=== PATIENT | male | born 1950 | race Caucasian/White ===

== ENCOUNTER 2017-10-23 19:52 | Inpatient (IN) | payer MEDICARE, MEDICAID ==
[~2017-10-23] VITALS: Ht 177.8 cm; Wt 88.5 kg
[~2017-10-23 19:52] MED LIST: VITAMIN D400 UNIT PO
[2017-10-23] MEDS ORDERED: VITAMIN D32000 UNI1 PO (20:11)
--- NOTE | 2017-10-24 02:00 | NUR ---
PT ARRIVED TO THE FLOOR VIA STRETCHER. ABLE TO SLIDE HIMSELF TO BED FROM STRETCHER EASILY. DENIES PAIN. DRESSING TO LAP SITES HAVE SEROSANGUINOUS DRAINAGE SHADOWING. DENIES NAUSEA AND IS ASKING FOR "SOMETHING TO EAT." PT EDUCATED ON CURRENT DIET AND EDUCATED ON THE ETIOLOGY OF WHY HE NEEDS TO GO SLOW WITH FOOD AT THIS TIME, PT ACKNOWLEDGED UNDERSTANDING. PT ONLY COMPLAINT AT THIS TIME IS THAT "I FEEL LIKE I HAVE TO PEE, I FEEL LIKE THERE IS ALOT OF PRESSURE IN THERE." BLADDER SCANNED PT, 0MLS SHOWN IN BLADDER. GAVE ICE WATER AND CHICKEN BROTH PER PT REQUEST, PT TOLERATED WELL. ORIENTED TO CALL LIGHT AND ROOM. FAMILY AT BEDSIDE.
--- NOTE | 2017-10-24 02:46 | NUR ---
pt continues to complain of pressure in his bladder, stating "it is very uncomfortable. dc'marquez rios, per ornamental metal erector reporting off to floor rn that it is okay to neo rios for pt comfort.
--- NOTE | 2017-10-24 03:19 | NUR ---
ANTWAN CAIN NOTIFIED RE TEMP.
--- NOTE | 2017-10-24 04:20 | NUR ---
PT LAYING IN BED, AWAKE WHEN ENTERING ROOM. REPORTS "NO PAIN WHEN I AM NOT BREATHING, BUT TO TAKE A BREATH ITS ABOUT A 6/10." GAVE OXYCODONE PO AND TORADOL IV FOR PAIN. NO COMPLAINTS OF NAUSEA. PT REPORTS "IM SO HUNGRY I CANT SLEEP." GAVE BROTH PER REQUEST. MERREM HUNG AND INFUSING WNL. GAVE INCENTIVE SPIROMETER AND GAVE SOME EDUCATION, PT REPORTS HE WILL START USING IT WHEN THE PAIN MEDS "KICK IN." PT NOW WATCHING TV. NO FURTHER NEEDS. CALL LIGHT IN REACH.
--- NOTE | 2017-10-24 05:10 | NUR ---
PT ALERT AND ORIENTED X4, PLEASENT DEMEANOR. FRIENDLY AND TALKATIVE. DENIES NAUSEA, HAS BEEN TOLERATING CLEAR LIQUIDS WELL. IV ANTIBOTICS. RACHID DRAIN, DRAINING SEROSANGUINOUS FLUID. PAIN WELL CONTROLLED WITH PO OXYCODONE AND IV TORADOL. PT USES CALL LIGHT APPROPRIATLY. CONTINUOUS FLUIDS.
--- NOTE | 2017-10-24 06:46 | NUR ---
PT REPORTS PAIN AT A 0/10, STATES "ITS REALLY NOT EVEN THERE AT ALL, IF I STOOD AND MOVED AROUND IT MIGHT HURT A LITTLE." CONTINUES TO DENY NAUSEA. NO FURTHER NEEDS AT THIS TIME.
--- NOTE | 2017-10-24 07:30 | NUR ---
PATIENT RESTING IN BED WITH BY HIS SIDE. PATIENT RATES PAIN 5 OUT OF 10 AND WOULD LIKE A PAIN PILL. RN NOTIFIED. FRESH ICE WATER GIVEN. HANDS AND FACE WASHED. PATIENT WOULD LIKE TO AMBULATE IN HALLWAY WHEN PAIN IS UNDER CONTROL. NO OTHER NEEDS AT THIS TIME. CALL BUTTON IN REACH.
--- NOTE | 2017-10-24 07:35 | NUR ---
REPORT RECEIVED FROM ANTWAN CAIN. PT IS AWAKE SITTING UP IN BED. DENIES PAIN AT THIS TIME. TOLERATING CLEAR LIQUID DIET WELL AND WOULD LIKE TO EAT SOON.
--- NOTE | 2017-10-24 07:52 | HP ---
[facility] [address] [place], [place] [address] Signed ADMISSION DATE: 10/23/2017 REASON FOR ADMISSION: Probable cecal perforation related to polypectomy and colonoscopy today. HISTORY OF PRESENT ILLNESS: This 67-year-old white man was undergoing screening colonoscopy by me earlier in the day. He was noted to have a sessile polyp of the cecum. The lesion was excised with hot snare polypectomy technique after mucosal lift using Endomark tattoo dye. Postoperatively, he was doing well, passing flatus without problems and went home. At home, he was noted to have some chills and abdominal pain which was worsening. He called me at home and since pain was not improving, I directed him to the emergency room. Coordination with Dr. Oquendo was undertaken where he was then given a CT scan as well as lab studies. The lab studies showed that his white count was over 20,000 (20.7), hematocrit of 49.4, and platelets of 257,000. Chem profile showed potassium of 3.3, which was otherwise normal. His lactic acid was 2.5. Urinalysis was normal. The CT scan showed free intraperitoneal air in a considerable amount. It is likely he suffered perforation related to the polypectomy. He is admitted for further evaluation and care to undergo operation without delay. REVIEW OF SYSTEMS: He denies any shortness of breath or chest pain. He does not feel like he can take a good deep breath due to discomfort, however. He has had no vomiting. His says that he has had some blood per rectum. PHYSICAL EXAMINATION: GENERAL: Pleasant white man, who does not look systemically toxic at this time, though he is uncomfortable. HEENT: Mucous membranes are slightly dry. Trachea is midline. CHEST: Clear. HEART: Regular without murmur. ABDOMEN: Not particularly distended. Palpation gently shows no focal mass or tenderness actually. EXTREMITIES: Show no clubbing, cyanosis, or edema. LABORATORY DATA: Lab studies were as previously described. CT scan is reviewed in detail, which shows free intraperitoneal most dominantly on the coronal section. Examination of the coronal Electronically Signed By: COLLETTE VILLAR MD 10/24/17 0752 PATIENT NAME: BRIANNA AGUERO HISTORY AND PHYSICAL DATE OF : 52 PHYSICIAN: COLLETTE VILLAR MD REPORT #: [id number] REPORT IS CONFIDENTIAL AND NOT TO BE RELEASED WITHOUT AUTHORIZATION [facility] [address] [place] [id number] Signed view shows scattered intraperitoneal air as well as some mesenteric air on the right side. ASSESSMENT: Most likely he has perforation of the polypectomy site, which has been well marked with Endomark tattoo dye and is on the cecum. I have proposed a laparoscopic evaluation and probable control of the perforation with a stapling device or other similar approach. If this is not successful, a limited laparotomy incision will be employed. It is most likely that perforation is located where the operative intervention was, so it is possible there could be some other area of problem. The risks of bleeding, infection, need for open procedure, and other unforeseen complications were reviewed with the patient and his . They understand and wished to proceed. In the meantime, fluid resuscitation, IV antibiotics, and so forth will be administered. Collette Villar MD JM/MODL /[id number] cc: Gareth Hodgson MD Electronically Signed By: COLLETTE VILLAR MD 10/24/17 0752 PATIENT NAME: BRIANNA AGUERO HISTORY AND PHYSICAL DATE OF : 52 PHYSICIAN: COLLETTE VILLAR MD REPORT #: [id number] REPORT IS CONFIDENTIAL AND NOT TO BE RELEASED WITHOUT AUTHORIZATION
--- NOTE | 2017-10-24 08:16 | NUR ---
MED REC COMPLETE
--- NOTE | 2017-10-24 08:36 | NUR ---
ADMINISTERED MORNING MEDS AND PRN PAIN MEDS. RATES PAIN 5/10. IN ROOM. HAS CRACKLES IN BASES. ADVISED TO USE IS AND DEEP BREATHE AND COUGH.
--- NOTE | 2017-10-24 08:50 | NUR ---
PATIENT UP AMBULATING IN HALLWAY. LINENS CHANGED. ORAL CARE SET UP IN BATH ROOM FOR USE. GOWN CHANGED.
--- NOTE | 2017-10-24 10:11 | NUR ---
PATIENT SITTING UP IN BED DRINKING BROTH. FRESH ICE WATER GIVEN. CALL BUTTON IN REACH. NO OTHER NEEDS AT THIS TIME.
--- NOTE | 2017-10-24 10:30 | NUR ---
PT SITTING UP IN BED EATING CRACKERS. DENIES NEEDS AT THIS TIME.
--- NOTE | 2017-10-24 10:58 | NUR ---
PT UP WALKING IN HALLS AGAIN. HAS HAD CRACKERS AND SOME PUDDING A SNACK. TOLERATING WELL. STATES HIS PAIN IS WELL CONTROLLED.
--- NOTE | 2017-10-24 12:44 | NUR ---
PATIENT RESTING IN BED. FRESH ICE WATER GIVEN. PATIENT STATES THAT HE JUST RECIEVED PAIN MEDICATION. NO OTHER NEEDS AT THIS TIME. IN ROOM. CALL BUTTON IN REACH.
--- NOTE | 2017-10-24 13:37 | NUR ---
PATIENT RESTING IN BED WATCHING TV WITH . CALL BUTTON IN REACH. CLEAN GOWN GIVEN. BP REPORTED TO RN. NO OTHER NEEDS AT THIS TIME.
--- NOTE | 2017-10-24 13:49 | NUR ---
VISITED WITH PT HE WAS UP AND WALKING IN HALWAY. HE SAID HE WAS FEELING MAYBE A LITTLE BETTER, BUT STILL NOT SURE WHAT IS WRONG. ALERT AND ORIENTED AND VERY PLEASANT. EXTENDED A BLESSING, WILL FOLLOW NEEDED
--- NOTE | 2017-10-24 14:19 | NUR ---
LEFT MESS ON DR VILLAR PHONE ASKING HIM TO CALL WHEN CONVIENT PT WAS WONDERING IF HE COULD BE DISCHARGED. WILL UPDATE PT WHEN HE CALLS BACK.
--- NOTE | 2017-10-24 14:40 | NUR ---
PT IS SITTING UP IN BED WATCHING TV WITH AT BEDSIDE. DENIES ANY PAIN OR NAUSEA. CALL LIGHT IN REACH.
--- NOTE | 2017-10-24 15:30 | NUR ---
PATIENT'S IS BACK AND SITTING WITH PATIENT AT BEDSIDE. PATIENT IS AWAKE AND CALM FOR NOW. PATIENT SIPPING ON SOME CLEAR LIQUIDS/LEMON [place] OSDA POP WITH ICE. JUST DUMPED ANOTHER 450MLS OF URINE FOR PATIENTS MOCK.
--- NOTE | 2017-10-24 16:18 | NUR ---
Student nurse reports that patient is resting in bed and wants to go home. no other needs.
--- NOTE | 2017-10-24 17:24 | NUR ---
TALKED TO DR VILLAR REGARDING POSSIBLE DISCHARGE. BP HAS BEEN A SMIDGE LOW TODAY SO DECIDED TO STAY FOR THE NIGHT AND PROBABLY GO IN THE MORNING. TOLD PT AND HE AND HIS WERE OK WITH IT. WASHED PT'S HAIR WITH SHOWER CAP AND GAVE HIM BED BATH WIPES HE CANT SHOWER YET. PT APPRECIATIVE.
--- NOTE | 2017-10-24 17:47 | NUR ---
PLAN TO DC TO HOME TOMORROW. PT IS SBA. WAS UP WALKING INDEPENDENTLY IN HALLWAY TODAY. NEEDS REMINDERS TO CALL AND GET UNHOOKED BEFORE GETTING UP. MINIMAL DRAINAGE FROM LAP SITES. REINFORCED 2 SITES WITH GAUZE. PAIN HAS BEEN WELL CONTROLLED. TOLERATING REGULAR DIET WELL.
--- NOTE | 2017-10-24 17:55 | NUR ---
PATIENT SITTING UP IN BED, IN ROOM. VITALS DONE. FRESH ICE WATER GIVEN, CALL LIGHT IN ROOM. NO OTHER NEEDS AT THIS TIME.
[2017-10-24] MEDS ORDERED: METRONIDAZOLE250 MG PO (19:16)
[2017-10-24] MEDS ORDERED: CIPROFLOXACIN500 MG PO (19:16)
[2017-10-24] MEDS ORDERED: TYLENOL325 MG PO (19:17)
[2017-10-24] MEDS ORDERED: OXYCODON-ACETA1 EAC2 PO (19:17)
[2017-10-24] MEDS ORDERED: MOTRIN IB200 MG PO (19:17)
--- NOTE | 2017-10-24 21:05 | NUR ---
PT SITTING UP IN BED WATCHING TV. ALERT AND ORIENTED X4, PLEASENT DEMEANOR, VERY TALKATIVE. RATES PAIN AT 2/10, STATING "NOT BAD RIGHT NOW." GAVE PERCOCET FOR PAIN. REPORTS FLATUS. IV INFUSING WNL. GAVE FRESH ICE WATER. NO FURTHER NEEDS.
--- NOTE | 2017-10-24 21:15 | NUR ---
PT UP AMBULATING IN THE HALLS, TOLERATING VERY WELL. STEADY ON FEET.
--- NOTE | 2017-10-24 22:31 | EKG ---
[facility] [address] [facility] [place] [address] Signed Normal sinus rhythm Possible Left atrial enlargement Borderline ECG No previous ECGs available Confirmed by FRANC PHELPS MD ([id number]) on 10/24/2017 10:31:34 PM Electronically Signed By: FRANC PHELPS MD 10/24/172230 PATIENT NAME: BRIANNA AGUERO Electrocardiogram DATE OF : 52 PHYSICIAN: FRANC PHELPS MD REPORT #: [id number] REPORT IS CONFIDENTIAL AND NOT TO BE RELEASED WITHOUT AUTHORIZATION
--- NOTE | 2017-10-24 23:24 | NUR ---
PT APPEARS TO BE SLEEPING. RR WNL AND UNLABORED. LIGHTS AND TV OFF IN ROOM.
--- NOTE | 2017-10-25 01:46 | NUR ---
PT APPEARS TO BE SLEEPING. RR WNL AND UNLABORED. LIGHTS AND TV OFF IN ROOM.
--- NOTE | 2017-10-25 05:10 | NUR ---
PT HAD UNEVENTFUL NIGHT. SLEPT MAJORITY OF SHIFT. PAIN WELL CONTROLLED. RACHID DRAINING MINIMAL AMOUNTS OF SEROSANGUENOUS DRAINAGE. PASSING FLATUS. NO NAUSEA. ALERT AND ORIENTED X4. PLEASENT DEMEANOR. AMBULATED IN THE HALLS LAST NIGHT, TOLERATED WELL.
--- NOTE | 2017-10-25 07:15 | NUR ---
REPORT RECEIVED FROM ANTWAN CAIN. PT UP WALKING IN HALLS AND SITTING IN CHAIR. INDEPENDENT IN ROOM. SL. UO PICKED UP THROUGHOUT NIGHT. WOULD LIKE A PAIN PILL WITH BREAKFAST.
--- NOTE | 2017-10-25 08:00 | NUR ---
PATIENT SITTING UP IN CHAIR, IN ROOM. SET UP FOR BREAKFAST. ROOM TIDIED. CALL LIGHT IN REACH.
--- NOTE | 2017-10-25 08:02 | NUR ---
ADMINISTERED PAIN MEDICATION WITH MORNING MEDS. PT AND SITTING UP WAITING FOR BREAKFAST. STATES HE IS FEELING WELL AND READY TO GO HOME TODAY. RACHID HAD 40 SOMETHING OUT THROUGH NIGHT.
--- NOTE | 2017-10-25 09:45 | NUR ---
PT SITTING UP IN CHAIR WATCHING TV WITH . PT EAGER TO GO HOME.
--- NOTE | 2017-10-25 10:02 | NUR ---
CHANGED PT DRESSING ON RACHID DRAIN SITE AND CHECKED TO MAKE SURE HE KNOWS HOW TO DRAIN AND DRESS SITE.
--- NOTE | 2017-10-25 10:29 | NUR ---
PT EDUCATION GIVEN, WENT OVER DRAIN AND INCISION CARE WITH PT AND . BOTH VERBALIZED UNDERSTANDING. PT GIVEN PRESCRIPTIONS AND EDUCATION REGARDING TYLENOL AND PERCO. PHARM IN TO EDUCATE ALSO. IV REMOVED WITH RN STUDENT AND INSTRUCTOR KRISTAN. VS STABLE. PT DRESSED AND BELONGINGS SENT HOME WITH THEM.
--- NOTE | 2017-10-25 11:12 | NUR ---
Discharge medication counseling by pharmacist. Patient discharged with 2 antibiotics, metronidazole 250mg PO TID and ciprofloxacin 500mg PO BID. Patient informed of potential side effects, including avoidance of alcohol while taking metronidazole
--- NOTE | 2017-11-09 14:11 | DS ---
[facility] [address] [place], [place] [address] Signed ADMISSION DATE: 10/23/2017 DISCHARGE DATE: 10/25/2017 REASON FOR ADMISSION: This 67-year-old white man underwent screening colonoscopy in the morning of October 23, 2017. He was noted to have a sessile polyp of the cecum for which a mucosal lift technique snare polypectomy was performed. A mucosal lift was using Endomark tattoo dye. The remaining colon was normal. Later in the evening, I was called at home by his , noting the patient was having abdominal pain as well as chills. He was directed to the emergency room in coordination with Dr. Oquendo, allowed for CT scan to be obtained as well as lab studies showing a white count of 20.7. A CT scan showing considerable amount of free air and some air in the region of the cecum. He is clinically diagnosed as having suffered a perforation of the cecum related to polypectomy. He is admitted for further evaluation and care. PERTINENT PHYSICAL EXAMINATION: GENERAL: Showed a pleasant white man, who did not look systemically toxic. CHEST: Clear. HEART: Regular. ABDOMEN: Only mildly distended and surprisingly not particularly tender. EXTREMITIES: Showed no clubbing, cyanosis, or edema. HOSPITAL COURSE: He was fluid-resuscitated, given broad-spectrum antibiotic meropenem and taken to operation. Operation consisted of laparoscopy showing a small amount of slightly foamy fluid in the right pericolic gutter. No gross evidence of fecal contamination and the Endomark tattoo dye site of the cecum in the anteromedial aspect. There was no sign of large hole in the area, though this undoubtedly was a source of his perforation likely a microperforation. The problem was managed by a laparoscopic wedge resection of that portion of the cecum with laparoscopic oversewing of the staple line with interrupted silk sutures. Lavage was undertaken and placement of a drain undertaken as well. The operation concluded approximately 2 in the morning. By later that morning, he was feeling well and able to tolerate liquid and subsequently a solid diet without problem. Although he wanted to be discharged home right away. I did keep him for further observation as he was mildly hypotensive with systolic pressure of 95. He was transitioned from broad-spectrum IV antibiotics to oral antibiotics Cipro and Flagyl. The drain was placed showed no evidence of purulent discharge, only serosanguineous fluid. Electronically Signed By: COLLETTE VILLAR MD 11/09/17 1411 PATIENT NAME: BRIANNA AGUERO DISCHARGE SUMMARY DATE OF : 52 REPORT #: [id number] PHYSICIAN: COLLETTE VILLAR MD PCP: FAUSTINO HODGSON MD REPORT IS CONFIDENTIAL AND NOT TO BE RELEASED WITHOUT AUTHORIZATION [facility] [address] [place], [place] [address] Signed By time of discharge, he is ambulating well, tolerating a regular diet, has essentially no pain. The drain shows serosanguineous fluid only. It is my intention that he have several days more of p.o. antibiotics to maintain a regular diet and to return to see me in approximately a week for drain removal. If there are problems in the meantime, he will certainly let me know. DISCHARGE DIAGNOSES: 1. Microperforation of cecum related to polypectomy with mucosal lift technique and Endomark tattoo dye application, October 23, 2017. 2. Laparoscopic remedy of problem to include a wedge resection of portion of cecum and polypectomy site, oversewing of site with silk suture and placement of drain and peritoneal lavage. DISCHARGE MEDICATIONS: Include: 1. Percocet 7.5/325, one to two p.o. q.4 hours p.r.n. pain, #10. 2. Flagyl 250 mg p.o. t.i.d. #15. 3. Cipro 500 mg p.o. b.i.d. #10. 4. Tylenol 650 mg p.o. q.4 hours as needed for pain. 5. Motrin 200 mg tablets, 3 tablets p.o. q.6 hours as needed for pain. 6. He will continue with his vitamin D3 tablet 2000 units daily. MD KATE Littlejohn/CATRACHITOL /[id number] cc: Faustino Hodgson MD Copies: FAUSTINO HODGSON MD ~ Electronically Signed By: COLLETTE VILLAR MD 11/09/17 1411 PATIENT NAME: BRIANNA AGUERO DISCHARGE SUMMARY DATE OF : 52 REPORT #: [id number] PHYSICIAN: COLLETTE VILLAR MD PCP: FAUSTINO HODGSON MD REPORT IS CONFIDENTIAL AND NOT TO BE RELEASED WITHOUT AUTHORIZATION
--- NOTE | 2017-11-09 14:11 | OR ---
[facility] [address] [place], [place] [address] Signed DATE OF OPERATION: 10/24/2017 SURGEON: Collette Villar MD PREOPERATIVE DIAGNOSES: 1. Free intraperitoneal air. 2. Status post cecal polypectomy with mucosal lift technique today. POSTOPERATIVE DIAGNOSIS: Probable microperforation at cecum. PROCEDURES: 1. Laparoscopy with laparoscopic wedge excision of polypectomy site (Endo-MALOU technique). 2. Over-sewing of Endo Alexander staple line. 3. Placement of drain and peritoneal lavage. ANESTHESIA: General endotracheal, Alexander Sohan, PRINTING ROLLER POLISHER and local 20 mL of 0.25% Marcaine without epinephrine. INDICATION: This is a 67-year-old white man underwent screening colonoscopy today. He prep at the time of colonoscopy was quite good. He was noted to have a somewhat sessile polyp of the cecum. This lesion was about 1-1/2 cm in size. Using mucosal lift technique with Endo Alexander tattoo, a snare polypectomy was accomplished without apparent problem. The remaining colon was normal. The patient has felt well until late in the afternoon where he began having abdominal pain and not feeling well. He called me at home and I recommended he come to the emergency room and coordinate with Dr. Oquendo, emergency room physician for him to undergo CBC, Chem profile, and CT scan of the abdomen. His white count was noted to be greater than 20,[address] scan shows free intraperitoneal air consistent with perforated colon. I have recommended he undergo a laparoscopy with probable laparoscopic repair of the perforation, which almost certainly would be at the site of the polypectomy. He and his understand the possible need for open procedure and other indicated procedures depending on clinical findings. The risks of bleeding, infection, failure of diagnosis, misdiagnosis, need for additional treatment, so forth were all reviewed and well understood. Electronically Signed By: COLLETTE VILLAR MD 11/09/17 1411 PATIENT NAME: BRIANNA AGUERO OPERATIVE REPORT DATE OF : 52 REPORT #: [id number] PHYSICIAN: COLLETTE VILLAR MD PCP: FAUSTINO RICO MD REPORT IS CONFIDENTIAL AND NOT TO BE RELEASED WITHOUT AUTHORIZATION [facility] [address] [place], [place] [address] Signed FINDINGS: Within the abdomen, there was definitely free air. There was no sign of gross fecal spillage. There was some foamy fluid in the right pericolic gutter and air within the fatty tissue in relation to the cecum. The Endo Alexander tattoo dye was quite obvious. Exposure of the polypectomy site did not show a large hole in the colon by any means, but did show thinning out and probable microperforation as an underlying problem. It was relatively close, but not contiguous with the ileum. The appendix itself was normal. The site was excised by wedge technique with Endo MALOU stapling device and the staple line oversewn laparoscopically with interrupted silk sutures. A drain was placed and peritoneal lavage undertaken as well. Other findings showed no evidence of terminal ileitis. The liver was normal as was the gallbladder. The appendix was normal and left in situ. DESCRIPTION OF PROCEDURE: The patient was brought to the operating room, given a general endotracheal anesthetic. Antibiotic meropenem was concurrently running. Preoperative Pepcid was given and sequential compression device stockings used. A Espinosa catheter was placed. The abdomen was clipped and prepared with chlorhexidine solution and draped sterilely. An infraumbilical incision was made and using an open Ladarius cannula technique, the abdomen was entered. Egress of free paired peritoneal air was noted. It was not foul smelling particularly. Pneumoperitoneum was achieved to a level of 14 mmHg of carbon dioxide gas. Intraabdominal inspection showed a foamy thin fluid along the right pericolic gutter and some crepitant soft tissue in the region of the cecum. Deep marking related to Endo Alexander tattoo dye was noted as well. There was no sign of fecal material within the abdominal cavity nor much of fluid really. An epigastric 12 mm port was placed and 2-hand examination undertaken identified the terminal ileum in the antimesenteric fat pad of Treves. The cecum was then identified more fully and elevated. It was found to be slight bubbling in the mesentery in relation to the colon. A 5 mm right lower quadrant port was placed allowing for 2-hand manipulation with a camera at the epigastric site. With various manipulations, the ileum and its relationship to the previous polypectomy site could be well identified. The appendix appeared normal. The perforation appeared to be likely at the anteromedial aspect. Some fatty tissue near the area of the presumed perforation was dissected free and excised exposing well the serosa of the cecum itself. There is no gross rent in the colon, only likely a micro perforation and photographs were taken. An additional 5 mm port was placed and the cecum elevated a bit and using an Endo MALOU stapling device with a vascular load, the segment of dyed cecal wall was elevated and transected. The small amount of cecum was placed in an endobag and extracted and examined on the back table. I could not find upon opening it any particular though that did appear to be polyp remnant, which is somewhat surprising. Electronically Signed By: COLLETTE VILLAR MD 11/09/17 7442 PATIENT NAME: BRIANNA AGUERO OPERATIVE REPORT DATE OF : 52 REPORT #: [id number] PHYSICIAN: COLLETTE VILLAR MD PCP: FAUSTINO RICO MD REPORT IS CONFIDENTIAL AND NOT TO BE RELEASED WITHOUT AUTHORIZATION [facility] [address] [place], [place] [address] Signed Irrigation was undertaken at the staple line. There was no sign of leakage or other problem. Given the findings and uncertainty as to the remaining vascularity of the cecum following the thermal effect of the polypectomy, laparoscopic closure of the staple line was undertaken with interrupted 2-0 silk suture. Meticulous care was taken to close this well and regional fatty tissue was reapproximated as well. the right lower quadrant trocar site, a 7 mm flat Jesus drain was placed in the region as well. Irrigation was undertaken fully throughout the abdomen and irrigation fluid suctioned free. The trocars were removed under direct visualization showing no sign of bleeding. The infraumbilical and epigastric trocar sites were secured with interrupted 2-0 Vicryl. Skin was closed with interrupted 3-0 Vicryl. Steri-Strips were applied. The patient was ultimately extubated and transferred to recovery in good condition having suffered no complication. Sponge, needle, and instrument counts were reported as correct x3. MD KATE Littlejohn/CORA /[id number] cc: MD Krishan Ma MD Electronically Signed By: COLLETTE VILLAR MD 11/09/17 1411 PATIENT NAME: BRIANNA AGUERO OPERATIVE REPORT DATE OF : 52 REPORT #: [id number] PHYSICIAN: COLLETTE VILLAR MD PCP: FAUSTINO RICO MD REPORT IS CONFIDENTIAL AND NOT TO BE RELEASED WITHOUT AUTHORIZATION
== END 2017-10-25 10:35 | disposition home or self-care (01) | DRG 909 ==
LOC: ED 19:52 → MS 22:28
PROVIDERS: ADMIT Surgery
PROC: 3E1M38Z Irrigation of Peritoneal Cavity using Irrigating Substance, Percutaneous Approach (ICD-10-PCS; principal; 2017-10-24)
PROC: 0DBH4ZZ Excision of Cecum, Percutaneous Endoscopic Approach (ICD-10-PCS; principal; 2017-10-24)
DX: K91.71 Accidental puncture and laceration of a digestive system organ or structure during a digestive system procedure (principal); Y84.8 Other medical procedures as the cause of abnormal reaction of the patient, or of later complication, without mention of misadventure at the time of the procedure; Z86.010 Personal history of colon polyps
CPT/HCPCS: 00840; 36415; 74177; 80053; 81001; 82247; 82465; 83605; 83615; 83690; 84100; 84478; 84550; 85025; 87040; 88305; 93005; 93010; 94760; 99153; G0500; J0131; J1644; J1885; J2185; J2250; J2370; J2405; J2704; J2765; J3010; J7030; J7120; Q9967

== ENCOUNTER 2018-03-06 20:20 | Emergency (ER) | payer MEDICARE, MEDICAID ==
[~2018-03-06] VITALS: Ht 177.8 cm; Wt 88.5 kg
[~2018-03-06 20:20] MED LIST changes: +CIPROFLOXACIN500 MG PO; +METRONIDAZOLE250 MG PO; +MOTRIN IB200 MG PO; +OXYCODON-ACETA1 EAC2 PO; +TYLENOL325 MG PO; +VITAMIN D32000 UNI1 PO
== END 2018-03-06 22:07 | disposition home or self-care (01) ==
LOC: ED 20:20
PROC: 0HQ1XZZ Repair Face Skin, External Approach (ICD-10-PCS; principal; 2018-03-06)
DX: S01.21XA Laceration without foreign body of nose, initial encounter (principal); W55.12XA Struck by horse, initial encounter
CPT/HCPCS: 12013; 90471; 90715; 99283

== ENCOUNTER 2021-05-31 20:13 | Inpatient (IN) | payer MEDICARE, MEDICAID ==
[~2021-05-31] VITALS: Ht 177.8 cm; Wt 87.7 kg
--- NOTE | 2021-05-31 23:45 | NUR ---
2310 pt ARRIVED TO FLOOR ON BiPAP. ABLE TO MOVE SELF FROM STRETCHER TO BED. ALERT AND ORIENTED, DID REPORTED FEELING "FUZZY" ANSWERED ALL QUESTIONS APPROPRIATELY. DAUGHTER AMOS ARRIVED WITH pt. DISCUSSED PLAN OF CARE. WHEN ASKED ABOUT INTUBATION pt RESPONDED THAT HE DID WANT TO BE INTUBATED, DAUGHTER LATER STATED THE FAMILY HAS DECIDED THEY DID NOT WANT INTUBATION. DISCUSSED PRONING. pt ABLE TO ROLL TO LEFT SIDE. O2 SAT RESPONDED WITH INCREASE TO HIGH 90'S. ASSESSMENT DONE. LUNGS CLEAR. RESPIRATIONS TACHY. pt REPORTED A RASH TO CHEST AND ARMS, DOTS OF RED NOTED. pt STATED THIS STARTED WHEN HE FELL ILL. NO OTHER SKIN BREAKDOWN NOTED. IVS PATENT, LABS DRAWN. IVF INFUSING PER ORDERS. MEDICATION GIVEN (SEE MAR). pt ARRIVED ON BiPAP SETTINGS OF 20/8 Fi02 OF 80%. TITRATED TO 16/8 FiO2 OF 80%. SATS APPROPRIATE. DAUGHTER REMAINS AT BEDSIDE. CALL LIGHT WITHIN REACH.
--- NOTE | 2021-06-01 00:28 | NUR ---
HAD A DISCUSSION WITH DAUGHTER AMOS AND pt. AT THIS TIME THE FAMILY AND PATIENT WOULD LIKE TO REFUSE THE REMDESIVER TREATMENT AND DECADRON. THEY UNDERSTAND THAT HE HAS ALREADY HAD ONE DOSE OF THE DECADRON. DAUGHTER REMAINS IN THE ROOM WITH PERMISSION FROM [employer] FIRMWARE DEVELOPER. CALL LIGHT WITHIN REACH.
--- NOTE | 2021-06-01 02:24 | NUR ---
CALL LIGHT ON. pt REQUESTED TO GET UP AND VOID. ASSISTED TO SIDE OF BED pt UNABLE TO START STREAM. REQUESTED TO TRY AGAIN LATER. MOVED pt FROM BiPAP TO NON REBREATHER AT 15L ABLE TO SUSTAIN ABOVE 90% FOR 2 MINUTES BEFORE DIPPING BELOW 90%. pt PLACED BACK ON BiPAP SETTINGS 17/04 Fi02 OF 80%. pt RESTING IN BED ON LEFT SIDE. DAUGHTER AT BEDSIDE. CALL LIGHT WITHIN REACH.
--- NOTE | 2021-06-01 04:50 | NUR ---
IVF INFUSION COMPLETED. SL. LABS DRAWN. pt REPORTED VOIDING. DAUGHTER NOTED THAT HIS SAT WENT UP TO 100% WHEN HE WAS STANDING. pt STATES HE FEELS BETTER. ASSESSMENT DONE. CRACKLES NOTED IN BASES. NO OTHER CHANGES. URINE IS VERY CONCENTRATED. BiPAP TITRATED FROM 16/8 FiO2 OF 80% TO 14/8 FiO2 OF 60% O2 SAT 95 OR GREATER. RESPIRATION RATE MID 20S. HR 70'S. pt ABLE TO TAKE BiPAP OFF AND ON WHEN NEEDED. PROVIDED APPLE JUICE. DAUGHTER REMAINS AT BEDSIDE. CALL LIGHT WITHIN REACH.
--- NOTE | 2021-06-01 04:51 | NUR ---
IVF INFUSION COMPLETED. SL. LABS DRAWN. pt REPORTED VOIDING. DAUGHTER NOTED THAT HIS SAT WENT UP TO 100% WHEN HE WAS STANDING. pt STATES HE FEELS BETTER. ASSESSMENT DONE. CRACKLES NOTED IN BASES. NO OTHER CHANGES. URINE IS VERY CONCENTRATED. BiPAP TITRATED FROM 14/8 FiO2 OF 80% TO 12/8 FiO2 OF 60% O2 SAT 95 OR GREATER. RESPIRATION RATE MID 20S. HR 70'S. pt ABLE TO TAKE BiPAP OFF AND ON WHEN NEEDED. PROVIDED APPLE JUICE. DAUGHTER REMAINS AT BEDSIDE. CALL LIGHT WITHIN REACH.
--- NOTE | 2021-06-01 05:18 | NUR ---
SATURATIONS CONTINUE TO RANGE IN THE LOW TO MID 90'S. CHANGED MODE FROM BiPAP TO CPAP 12, Fi02 OF 65%. NO REQUESTS AT THIS TIME. CALL LIGHT WITHIN REACH.
--- NOTE | 2021-06-01 06:42 | NUR ---
pt URINATED, CONCENTRATED URINE. REPLACED ELECTRODES. DENIES SOB, REPORTS THE CPAP IS COMFORTABLE. DAUGHTER AT BEDSIDE. CALL LIGHT WITHIN REACH.
--- NOTE | 2021-06-01 07:49 | NUR ---
WOB OK BOZENA CPAP WELL PROTECTING OWN AIRWAY AT THIS TIME. FIO2 DECREASED FROM 60% TO 50% BOZENA WELL. PT REFUSING HEAT AND HUMIDITY AT THIS TIME.
--- NOTE | 2021-06-01 08:33 | NUR ---
PATIENT AWAKE IN BED, VITALS CHARTED. ICE WATER PROVIDED AND BREAKFAST ORDERED. RN CARLOS A IN ROOM NOW. CALL LIGHT IN REACH
--- NOTE | 2021-06-01 08:45 | NUR ---
PATIENT ASSESSMENT COMPLETE. MEDICATIONS GIVEN ORDERED. PATIENT IS ON CPAP 50% FIO2. PATIENT LUNG SOUNDS ARE CLEAR IN THE UPPER LOBES AND HAS FINE CRACKLES IN THE LOWER LOBES. OXYGEN SATURATION IS MAINTAIN FROM 90-94%. DENIES FEELING SHORT OF BREATH. BREATHING IS EQUAL AND UNLABORED. HEART RATE IS 72 BPM ON SINUS RHYTHM. URINE OUTPUT IS YELLOW AND CLEAR. NO BM THIS MORNING. PATIENT UPDATED ON PLAN OF CARE. CALL LIGHT WIHTIN REACH NO FUTHER NEEDS.
--- NOTE | 2021-06-01 09:45 | NUR ---
PATIENT UP IN BED FOR BREAKFAST. CPAP SWITCHED WITH 15 LITERS OF HIGH FLOW OXYGEN. PATIENT OXYGEN SATURATIONS DECREASED FROM 85%-90%. CPAP WAS PUT BACK ON. PATIENT CPAP IS SET AT 60% FI02 AND 12 PRESSURE. OXYGEN SATURATION UP TO 95%. PATIENT DENIES FEELING SHORT OF BREATH. RR IS 23. HEART RATE IS 70 BPM. DAUGHTER PRESENT AT BEDSIDE. PATIENT UPDATED ON PLAN OF CARE. CALL LIGHT WITHIN REACH NO FUTHER NEEDS.
--- NOTE | 2021-06-01 12:20 | NUR ---
PATIENT ASSESSMENT COMPLETE. LR RUNNING AT 100 MLS/HR. PATIENT UP IN HIGH FOWLERS FOR LUNCH. PATIENT ON VAPOTHERM 40 LPM AND 100 FIO2. OXYGEN SATURATION WAS 88%-95%. BREATHING UNLABORED AND EQUAL. RR IS 25. HEART RATE IS 83 BPM. SINUS RHYTHM. URINE OUT IS CLEAR AND YELLOW. NO BM TODAY. PATIENT PLACED ON CPAP PRESSURE 12 AND 60 FIO2. PATIENT UPDATED ON PLAN OF CARE. CALL LIGHT WITHIN REACH NO FUTHER NEEDS.
--- NOTE | 2021-06-01 17:31 | NUR ---
PATIENT ASSESSMENT COMPLETE. PATIENT IS EATING DINNER. VAPOTHERM ON AT 40 LPM AND 100% FI02. OXYGEN SATURATION IS 90%. LUNG SOUNDS ARE CLEAR IN THE UPPER LOBES AND HAS FINE CRACKLES IN THE LOWER LOBES. UNLABORED AND EQUAL BREATHING DENIES FEELING SHORT OF BREATH. RR IS 21. HEART RATE IS 70 BPM. PATIENT IS IN SINUS RHYTHM. URINE IS YELLOW AND CLEAR. NO BM TODAY. PATIENT UPDATED ON PLAN OF CARE. CALL LIGHT WITHIN REACH NO FUTHER NEEDS.
--- NOTE | 2021-06-01 18:37 | NUR ---
MED REC COMPLETED
--- NOTE | 2021-06-01 19:30 | NUR ---
RECEIVED REPORT FROM ANTWAN STRAUSS. pt RESTING IN BED ON CPAP. DAUGHTER MASOUD AND GRANDJOAQUIN AT BEDSIDE. NO REQUESTS AT THIS TIME. CALL LIGHT WITHIN REACH.
--- NOTE | 2021-06-01 20:30 | NUR ---
IN TO DO ASSESSMENT. DISCUSSED MEDICATIONS WITH pt AND FAMILY IN DEPTH. REFUSED REMDESIVIR. LR INFUSING PER ORDERS. ASSESSMENT DONE. LUNGS CLEAR IN THE UPPERS, CRACKLES IN THE LOWERS. PROVIDED WATER. pt ABLE TO REMOVE CPAP MASK NEED FOR WATER. CALL LIGHT WITHIN REACH.
--- NOTE | 2021-06-01 21:23 | NUR ---
HUNG A NEW BAG OF IV FLUID. NO REQUESTS AT THIS TIME. pt RESTING ON LEFT SIDE. CPAP IN PLACE SATS MID 90'S. CALL LIGHT WITHIN REACH.
--- NOTE | 2021-06-01 22:30 | NUR ---
CALL LIGHT ON. PROVIDED URINAL. NO FURTHER REQUESTS AT THIS TIME.
--- NOTE | 2021-06-02 | NUR ---
CALL LIGHT ON. pt REQUESTED PRN COUGH MEDICATION. PROVIDED. ASSESSMENT DONE. NO CHANGES. DAUGHTER AMOS AT BEDSIDE. DISCUSSED PLAN OF CARE. CALL LIGHT WITHIN REACH. pt RESTING ON RIGHT SIDE WITH CPAP IN PLACE.
--- NOTE | 2021-06-02 05:02 | NUR ---
NOTED A DROP IN O2 SAT. IN TO ASSESS. pt UP TO VOID, BSC SBA. ABLE TO GET BACK TO BED BY SELF. ASSESSMENT DONE. NO CHANGES NOTED. pt PLACED ON VAPOTHERM 30L 100% TO DO AM CARES. ABLE TO MAINTAIN SATS MID 80'S WITH ACTIVITY. BACK ON CPAP. NO FURTHER REQUESTS AT THIS TIME. CALL LIGHT WITHIN REACH.
--- NOTE | 2021-06-02 06:28 | EKG ---
[facility] [address] [place], [place] [address] Signed Normal sinus rhythm Normal ECG When compared with ECG of 23-OCT-2017 20:30, No significant change was found Confirmed by JAY RAMIREZ MD ([id number]) on 06/02/2021 6:28:31 AM Electronically Signed By: JAY RAMIREZ MD 06/02/21 0628 PATIENT NAME: BRIANNA AGUERO Electrocardiogram DATE OF : 52 PHYSICIAN: JAY RAMIREZ MD REPORT #: [id number] REPORT IS CONFIDENTIAL AND NOT TO BE RELEASED WITHOUT AUTHORIZATION
--- NOTE | 2021-06-02 07:36 | NUR ---
REPORT RECEIVED FROM NIGHTSHIFT RN, WILL CONTINUE PLAN OF CARE.
--- NOTE | 2021-06-02 08:10 | NUR ---
PATIENT AWAKE IN BED, DAUGHTER IN ROOM. FRESH ICE WATER AND BREAKFAST PROVIDED. BEDBATH SUPPLIES IN ROOM FOR LATER. CALL LIGHT AND PERSONAL ITEM CLOSE BY. PATIENTS DAUGHTERS WILL BE SWITCHING OUT WITHIN THE HOUR.
--- NOTE | 2021-06-02 09:26 | NUR ---
THIS RN IN TO ASSESS PT AND ADMINISTER SCHEDULED MEDICATIONS. PT LAYING BED AWAKE AND ALERT ON THE CPAP AT 50% FIO2. PT ASSESSED AT THIS TIME LUNGS CLEAR IN UPPER LOBES, CLEAR/DIM IN LOWER RIGHT AND EXPIRATORY WHEEZES HEARD IN LOWER LEFT LOBE. PT PLACED ON VAPOTHERM TO TAKE PO MEDICATIONS, PT REFUSED PROTONIX, PT INFORMED ON THE PURPOSE OF THE MEDICATION AND PT STILL REFUSED IT. OTHER MEDICATIONS ADMINISTERED ORDERED (SEE MAR), PT ON IVF AT ORDERED RATE. PT PLACED BACK ON CPAP AND INCREASED TO 100% TO USE BSC PT STATED HE WAS UNABLE TO VOID USING THE URINAL. PT ABLE TO VOID AND GOT BACK TO THE BED, SPO2 MAINTAINED IN 90-92% RANGE ON 100% FIO2, PT NOTED TO HAVE LABORED BREATHING AFTERWARDS. PT SLOWLY TITRATED BACK DOWN TO 50% FIO2, SPO2 MAINTAINED IN 90% RANGE. PT NOW RESTING IN BED AND WAS PLACED ON VAPOTHERM 40L 100%, SPO2 MAINTAINING 90-92%, PT NOW EATING BREAKFAST AT THIS TIME. PT REPORTS NO FURTHER NEEDS AT THIS TIME, CALL LIGHT IN REACH, BED IN LOWEST POSITION, WILL CONTINUE PLAN OF CARE, PT'S DAUGHTER IN ROOM AT THE BEDSIDE AT THIS TIME WITH PT.
--- NOTE | 2021-06-02 11:00 | NUR ---
THIS RN IN TO CHECK ON PT, PT LAYING ON HIS RIGHT SIDE RESTING WHILE ON THE CPAP AT 50%. SPO2. PT STATES HE WAS ABLE TO EAT SOME OF HIS BREAKFAST AND WENT BACK ON THE CPAP AFTERWARDS. PT REPORTS NO FURTHER NEEDS AT THIS TIME WHEN ASKED AND REMAINS RESTING IN BED, CALL LIGHT IN REACH, BED IN LOWEST POSITION, IVF INFUSING, SPO2 AT 94%, WILL CONTINUE PLAN OF CARE.
--- NOTE | 2021-06-02 11:15 | NUR ---
DR. RAMIREZ IN PT'S ROOM AT THIS TIME, WILL CONTINUE PLAN OF CARE.
--- NOTE | 2021-06-02 11:36 | NUR ---
THIS DIRECTOR OF SALES MARKETING IN ROOM TO REPOSITION PATIENT ONTO RIGHT SIDE, PILLOW BEHIND FOR SUPPORT. CPAP IN PLACE. CALL LIGHT IN REACH
--- NOTE | 2021-06-02 12:20 | NUR ---
THIS RN IN TO ASSESS PT, PT ON CPAP AT THIS TIME AT 50% FIO2. SPO2 93-94%. PT VITALS TAKEN, AND PT ASSESSED AT THIS TIME. PT UP TO BEDSIDE COMMODE TO VOID AND HAVE A BM AT THIS TIME, FIO2 AT 100% DURING THIS TIME AND TURNED BACK DOWN TO 50% FIO2 AT THIS TIME. PT NOW RESTING IN BED AT THIS TIME AND REPORTS NO FURTHER NEEDS, WILL CONTINUE PLAN OF CARE, CALL LIGHT IN REACH, BED IN LOWEST POSITION.
--- NOTE | 2021-06-02 12:46 | NUR ---
PT ON PRECAUTIONS, UNABLE TO VISIT PT AT THIS TIME
--- NOTE | 2021-06-02 14:09 | NUR ---
BABAR AVILESA IN ROOM FOR BEDBATH. DAUGHTER AT BEDSIDE TO ASSIST. PATIENT ON CPAP/100%. PATIETNT TOLERATED WELL, WAS ABLE TO WASH PRIVATE AREAS AND HANDS/FACE. LINENS CHANGED. PATIENT NOW ON RIGHT SIDE, CPAP ON 50%. CALL LIGHT IN REACH, NO OTHER NEEDS AT THIS TIME
--- NOTE | 2021-06-02 17:00 | NUR ---
THIS RN IN TO ASSESS PT AND ADMINISTER SCHEDULED MEDICATION (SEE MAR). PT LAYING IN BED AT THIS TIME ON HIS LEFT SIDE ON THE CPAP AT 45%. ANTWAN STAFFORD, PT'S SON, AND CICI VASQUEZ IN ROOM AT THIS TIME. SCHEDULED MEDICATIONS ADMINISTERED AT THIS TIME (SEE MAR), IV MEDICATION NOW INFUSING AT ORDERED RATE. PT DENIES ANY PAIN, SOB, AND REPORTS NO FURTHER NEEDS AT THIS TIME. SON IN ROOM WITH PT STILL AT THIS TIME, PT REPORTS NO FURTHER NEEDS WHEN ASKED, WILL CONTINUE PLAN OF CARE. CALL LIGHT IN REACH, BED IN LOWEST POSITION, CPAP LEFT ON AT PREVIOUS SETTINGS SPO2 90-92%
--- NOTE | 2021-06-02 17:55 | NUR ---
THIS RN IN TO ADMINISTER SCHEDULED MEDICATIONS, IV REMDESEVIR COMPLETE AT THIS TIME. PT ON THE CPAP, SETTINGS UNCHANGED, PO MEDICATIONS ADMINISTERED AT THIS TIME. PT REPORTS NO FURTHER NEEDS AND IS NOW BACK TO A SIDE LAYING POSITION ON THE CPAP, SPO2 94%. SON IN ROOM WITH PT AT THIS TIME, BED IN LOWEST POSITION, CALL LIGHT IN REACH, WILL CONTINUE PLAN OF CARE.
--- NOTE | 2021-06-02 20:25 | NUR ---
PATIENT DESAT TO 84%. FAMILY HAD SWITCHED PATIENT TO THE BIPAP MASK FROM VAPOTHERM. PATIENT ENCOURAGED TO TURN TO HIS LEFT SIDE. Fi02 INCREASED FROM 55 TO 60% Fi02. PATIENT FEELS WARM TO THE TOUCH, AXILLARY TEMP 99.1 F. PATIENT REPORTS BEING COMFORTABLE. FAMILY AT BEDSIDE.
--- NOTE | 2021-06-02 22:16 | NUR ---
URNAL EMPTIED, URINE IS YELLOW AND CLEAR. PATIENT ON RIGHT SIDE. CPAP IN PLACE. O2 SATS >90% RR 25. PATIENT REPORTS FEELING WARM BUT IS COMFORTABLE. CALL LIGHT IN REACH.
--- NOTE | 2021-06-03 00:30 | NUR ---
PATIENT OFF CPAP FOR SIPS OF WATER. REQUEST TEMP IN ROOM BE TURNED BACK UP. COVERED PATIENT WITH BLANKET AND ADJUSTED THE TEMP. URNAL EMPTIED. PATIENT TOLERATING CPAP 12 AT 60% Fi02.
--- NOTE | 2021-06-03 00:43 | NUR ---
URNAL EMPTIED. PATIENT ON CPAP, TOLERATING WELL. FRESH ICE WATER PROVIDED. PATIENT COUGHING SOME, DENIES NEED FOR PRNs. PATIENT ON HIGH LEFT SIDE NOW. CALL LIGHT IN REACH.
--- NOTE | 2021-06-03 03:00 | NUR ---
URNAL EMPTIED. PATIENT TOLERATING CPAP 45% Fi02. O2 SATS GREATER THAN 88% AND RR 20'S.
--- NOTE | 2021-06-03 06:00 | NUR ---
PATIENT REQUESTING TO BE OFF CPAP. SWITCHED TO VAPOTHERM 40L 100% Fi02. MORNING LABS DRAWN. PATIENT APPEARS SOB AND RESTLESS. PATIENT REQUESTING BREAKFAST BE ORDERED. FRESH ICE WATER PROVIDED. ASSISTED PATIENT TO REPSOITION TO HIS LEFT SIDE. O2 SATS GREATER THAN 88%, RR 30'S.
--- NOTE | 2021-06-03 07:24 | NUR ---
CALL LIGHT ANSWERED, PT NEEDED ASSISTANCE TO UNTANGLE SOME CABLES. PT APPEARS SOB, SPO2 IN MID 80s%, PLACED BACK ON CPAP AT THIS TIME, PRESSURE INCREASED TO 16 AMD FIO2 INCREASED TO 100% FOR PATIENT TO RECOVER. PT DENIES FURTHER NEEDS, CALL LIGHT WITHIN REACH.
--- NOTE | 2021-06-03 07:43 | NUR ---
REPORT RECEIVED FROM NIGHTSHIFT RN, WILL CONTINUE PLAN OF CARE.
--- NOTE | 2021-06-03 09:00 | NUR ---
THIS RN IN TO ASSESS PT AND ADMINISTER SCHEDULED MEDICATIONS. PT LAYING IN BED AT THIS TIME ON THE CPAP AT 100% FIO2, PT TITRATED DOWN TO 50% FIO2, SPO2 NOW AT 90-92%. PT REPORTS HAVING GENERAL ACHES AND PAIN 4/10 AND A COUGH, PRN COUGH MEDICATION AND TYLENOL ADMINISTERED ALONG WITH SCHEDULED MEDICATIONS. RT IN ROOM AT THIS TIME AND ASSISTED PT IN SWITCHING OVER TO THE VAPOTHERM ON 40LPM 100% FIO2 TO EAT BREAKFAST. PT SPO2 MAINTAINED 84-88% ON THE VAPOTHERM, PT ABLE TO FINISH SOME OF HIS BREAKFAST AND WAS PLACED BACK ON THE CPAP HE FELT SHORT OF BREATH. PT FIO2 INC TO 60% ON CPAP TO MAINTAIN SATURATIONS, PT ASSISTED INTO A LEFT SIDE LAYING POSITION, SPO2 NOW AT 92-96%. PT ASSESSED AT THIS TIME. PT REPORTS NO FURTHER NEEDS AT THIS TIME AND IS NOW RESTING ON HIS SIDE ON THE CPAP, WILL CONTINUE PLAN OF CARE. CALL LIGHT IN REACH, BED IN LOWEST POSITION.
--- NOTE | 2021-06-03 10:05 | NUR ---
THIS RN, ANTWAN STAFFORD, CICI VASQUEZ IN TO ASSIST PT INTO A PRONE POSITION. PT INITIALLY LAYING ON HIS RIGHT SIDE ON THE CPAP AT 60% FIO2. PT INFORMED THAT WE WERE THERE TO ASSIST HIM IN PRONING. PT ABLE TO ROLL OVER TO HIS RIGHT SIDE AND GET UP ON HIS HANDS AND KNEES. PILLOWS PLACED UNDER PT FOR COMFORT. PT NOW PRONING AT THIS TIME AND REMAINS ON THE CPAP. FIO2 TITRATED DOWN TO 45% AT THIS TIME, SPO2 MAINTAINING AT 94-96%. PT REPORTS NO FURTHER NEEDS AT THIS TIME WHEN ASKED, CALL LIGHT IN REACH, BED IN LOWEST POSITION, WILL CONTINUE PLAN OF CARE.
--- NOTE | 2021-06-03 11:10 | NUR ---
PT STILL PRONING AT THIS TIME ON THE CPAP AT 45% FIO2, SPO2 AT 95%. PT'S DAUGHTER IN ROOM AT THIS TIME WITH PT, RT NOW IN ROOM ASSESSING PT AT THIS TIME. NO NEEDS ASSESSED AT THIS TIME, CALL LIGHT IN REACH, BED IN LOWEST POSITION, WILL CONTINUE PLAN OF CARE.
--- NOTE | 2021-06-03 11:37 | NUR ---
PT CHECKED ON AT THIS TIME. PT STILL PRONING FIO2 45% AT THIS TIME, PT ALERT AND ORIENTED, PT'S DAUGHTER IN ROOM AT THIS TIME. PT LUNCH ORDER TAKEN AT THIS TIME. PT REPORTS NO FURTHER NEEDS WHEN ASKED AND IS STILL PRONING IN BED ON THE CPAP, SETTINGS UNCHANGED, CALL LIGHT IN REACH, BED IN LOWEST POSITION, WILL CONTINUE PLAN OF CARE.
--- NOTE | 2021-06-03 12:25 | NUR ---
THIS RN IN TO ASSESS PT AND ADMINISTER SCHEDULED MEDICATION. PT. LAYING IN BED PRONING AT THIS TIME ON THE CPAP, FIO2 AT 50%. PT ASSESSED AT THIS TIME. PT THEN ROLLED OVER ONTO HIS BACK AT THIS TIME AND SAT UP IN BED, VITALS TAKEN. AT THIS TIME AND SCHEDULED IV MEDICATION ADMINISTERED AND NOW INFUSING AT ORDERED RATE. PT SWITCHED OVER TO THE VAPOTHERM AT 40LPM 100% FIO2 TO EAT HIS LUNCH, PT SPO2 MAINTAINING 88-90% ON THE VAPOTHERM. PT REPORTS NO FURTHER NEEDS AT THIS TIME AND IS NOW EATING HIS LUNCH. CALL LIGHT IN REACH, BED IN LOWEST POSITION, IV MEDICATION INFUSING, PT'S DAUGHTER IN ROOM AT BEDSIDE, WILL CONTINUE PLAN OF CARE.
--- NOTE | 2021-06-03 13:00 | NUR ---
THIS ENVIRONMENTAL SOLUTIONS ENGINEER AND DATA PROGRAMMER VIVIAN IN TO ASSIST PATIENT INTO PRONE POSITION. DAUGHTER IN ROOM. PATIENT ON CPAP, TOLERATING WELL.
--- NOTE | 2021-06-03 13:10 | NUR ---
THIS RN IN TO CHECK ON PT, PT USING CPAP AT THIS TIME AND IS ON THE VAPOTHERM STILL AT 40LPM 100% FIO2. PT NOTED TO HAVE AN SPO2 IN THE 79-83% PT STATES HE IS USING THE URINAL AT THIS TIME. PT PLACED ON THE CPAP AT AN FIO2 OF 60%. PT SPO2 INCREASED AFTER BEING PLACED ON AND IS NOW MAINTAINING AT 92-94%. AFTER VOIDING INTO URINAL PT WAS SALINE LOCKED IV REMDESEVIR WAS COMPLETED. PT THEN ASSISTED INTO A SIDE LAYING POSITION ON HIS RIGHT SIDE, PT STATES HE WOULD LIKE TO PRONE LATER IN THE DAY. PT TITRATED DOWN TO 50% FIO2 ON THE CPAP AFTER RESTING FOR A WHILE ON HIS SIDE, SPO2 MAINTAINING AT 94%. PT REPORTS NO FURTHER NEEDS AT THIS TIME WHEN ASKED, CALL LIGHT IN REACH, BED IN LOWEST POSITION, DAUGTHER IN ROOM, WILL CONTINUE PLAN OF CARE.
--- NOTE | 2021-06-03 13:38 | NUR ---
IN TO ASSIST PT TO PRONE
--- NOTE | 2021-06-03 14:36 | NUR ---
Case Management assessment completed with daughter who lives in the area and is currently assisting Torin and his Aurora Fregoso who has also had Covid recently but did not require hopsitalization. Daughter Nahomi is pleased that Torin has been able to tolerate proning for a good portion of the day today. His current plan of care has been explained to her, and she feels comfortable with the plan of care, and she along with her brother Harsha have communicated the current plan of care to the rest of the family. Nahomi expresses no new concerns or questions at this time. At this time Torin continues to prone and seems to be tolerating proning quite well for now.
--- NOTE | 2021-06-03 14:50 | NUR ---
THIS RN IN TO ASSIST PT IN REPOSITIONING IN BED AND TAKING A DRINK. PT LAYING IN BED PRONING ON 50% FIO2 ON THE CPAP, SPO2 MAINTAINING 92-94%. PT UP ON HIS KNEES TO REPOSITION LINENS, PLACE PILLOWS UNDER, AND PROVIDE THE PT WITH A DRINK OF WATER. PT ASSISTED WITH CORD MANAGEMENT AND WAS ABLE TO FIND A COMFORTABLE POSITION WHEN PRONING. PT NOW RESTING WHILE PRONING AND REPORTS NO FURTHER NEEDS, CALL LIGHT IN REACH, BED IN LOWEST POSITION, WILL CONTINUE PLAN OF CARE.
--- NOTE | 2021-06-03 15:00 | NUR ---
THIS RN IN TO REPLACE LEADS FOR HEART MONITOR ON PT. PT PRONING AT THIS TIME AND IS ALERT AND ORIENTED. LEADS REPLACED AT THIS TIME, PT REPORTS NO FURTHER NEEDS AT THIS TIME AND IS RESTING WHILE PRONING STILL. CPAP FIO2 TITRATED DOWN TO 45% AT THIS TIME. WILL CONTINUE PLAN OF CARE. CALL LIGHT IN REACH, BED IN LOWEST POSITION.
--- NOTE | 2021-06-03 16:00 | NUR ---
THIS RN IN TO ASSESS PT. PT LAYING ON HIS RIGHT SIDE AND STATED HE HAD JUST REPOSITIONED HIMSELF FROM BEING PRONE. PT ASSISTED IN WIRE MANAGMENT AND ASSISTED IN REPOSITIONING HIMSELF ONTO HIS RIGHT SIDE IN A MORE COMFORTABLE MANNER. PT STILL ON CPAP AT THIS TIME, FIO2 AT 45%, SPO2 MAINTAINING AT 90-96%. PT VITALS TAKEN AND PT ASSESSED. PT REPORTS NO FURTHER NEEDS AFTER BEING ASSESSED. PT DENIES HAVING ANY PAIN, DENIES SHORTNESS OF BREATH AT THIS TIME AND DENIES THE NEED FOR COUGH MEDICATION. PT NOW RESTING ON HIS RIGHT SIDE ON THE CPAP, WILL CONTINUE PLAN OF CARE. CALL LIGHT IN REACH, BED IN LOWEST POSITION.
--- NOTE | 2021-06-03 17:20 | NUR ---
THIS RN IN TO BRING PT HIS DINNER. PT LAYING IN BED ON HIS RIGHT SIDE AND WAS ASSISTED WITH WIRE/CORD MANAGEMENT PT SAT UP IN BED TO EAT DINNER. PT WAS ON CPAP AT 45% FIO2 AND WAS CHANGED OVER TO THE VAPOTHERM AT 40LPM 100% FIO2. PT MAINTAINING SPO2 AT 88-90% WHILE EATING DINNER AND REPORTS NO FURTHER NEEDS WHEN ASKED. WILL CONTINUE PLAN OF CARE. CALL LIGHT ON BED WITHIN REACH, CPAP AT BEDSIDE, BED IN LOWEST POSITION.
--- NOTE | 2021-06-03 18:40 | NUR ---
THIS RN IN TO ASSIST PT WITH PRONING. PT ON CPAP AT 45% AND WAS PREOXYGENATED TO 100% FIO2 WHILE REPOSITIONING. PT ABLE TO REPOSITION ON HIS OWN, ASSISTANCE ONLY NEEDED WITH PILLOW PLACEMENT FOR COMFORT AND CORD MANAGEMENT. PT NOW PRONING AND WAS TITRATED DOWN TO 40% FIO2 HIS SPO2 WAS MAINTAINING 98-100%. PT NOW RESTING IN BED ON THE CPAP PRONING AND REPORTS NO FURTHER NEEDS WHEN ASKED, WILL CONTINUE PLAN OF CARE. CALL LIGHT IN REACH, BED IN LOWEST POSITION, PT'S SON IN ROOM AT THE BEDSIDE.
--- NOTE | 2021-06-03 19:30 | NUR ---
Report recieved, care of patietn assumed at this time. pt in room, son in bedside, pt resting on CPAP in prone position. spo2 = 94% RR= 20-24 at rest.
--- NOTE | 2021-06-03 20:31 | NUR ---
IN ROOM TO COMPLETE ASSESSMENT AND TO ASSIST PT WITH REPOSITIONING IN BED. ASSESSMENT COMPLETED. PT REMAINS ON CPAP, NOW IN PRONE POSITION. PLAN ESTABLISHED FOR EVENING. ALL QUESTIONS ANSWERED. CALL LIGHT WITHIN REACH. DENIES FURTHER NEEDS AT THIS TIME.
--- NOTE | 2021-06-03 21:09 | NUR ---
MEDICATIONS ADMINISTERED. PT ON VAPOTHERM AT 40 L AND 100% FIO2 FOR MEDICATION ADMINISTRATION. PT GIVEN PRN TYLENOL AND COUGH SUPPRESSANT PER PT REQUEST. PT STOOD AT BEDSIDE AND MARCHED IN PLACE. SPO2 DROPPED DOWN TO 74% WITH EXERTION, BUT PT QUICKLY RECOVERED AFTER LAYING DOWN. ORAL CARE COMPLETED. PT LAYING BACK IN BED IN LEFT SIDE LYING POSITION. CPAP IN PLACE. SPOE =95% CALL LIGHT WITHIN REACH. DENIES FURTHER NEEDS AT THIS TIME.
--- NOTE | 2021-06-04 00:36 | NUR ---
ASSESSMENT COMPLETED. PT NOW SLEEPING ON RIGHT SIDE. FIO2 TURNED DOWN TO 40% PM CPAP. SPO2 =93% CALL LIGHT WITHIN REACH. DENIES FURTHER NEEDS AT THIS TIME.
--- NOTE | 2021-06-04 02:38 | NUR ---
PT RESTING ON CPAP, IN LEFT SIDE LAYING POSITION SPO2 = 94% CALL LIGHT WITHIN REACH. WILL CONTINUE TO MONITOR.
--- NOTE | 2021-06-04 03:37 | NUR ---
RESPONDED TO PT CALL LIGHT. PT REQUESTING TYLENOL FOR GENERAL DISCOMFORT. ASSESSMENT COMPLETED. PT PLACED ON VAPOTHERM AT 40L AND 80% FIO2 AT THIS TIME. ASSISTED PT WITH REPOSITIONING ONTO SIDE. SATURATIONS AT 90 PERCENT. WARM BLANKET PROVIDED. CALL LIGHT WITHIN REACH. WILL CONTINUE TO MONITOR.
--- NOTE | 2021-06-04 03:52 | NUR ---
PT PLACED BACK ON CPAP AT THIS TIME.
--- NOTE | 2021-06-04 06:18 | NUR ---
LAB IN ROOM FOR BLOOD DRAW
--- NOTE | 2021-06-04 08:00 | NUR ---
THIS MORNING SHOW PRODUCER IN PATIENTS ROOM WITH FRESH ICE WATER AND APPLE JUICE. URINAL SPILLED DURING USE, LINENS AND GOWN CHANGED. BEDBATH COMPLETE. MEDICAL TAPE PLACED ON BRIDGE ON NOSE TO PREVENT BREAKDOWN. CALL LIGHT IN REACH
--- NOTE | 2021-06-04 08:00 | NUR ---
V/S WDL OVERALL, PT ON C-PAP 40%. UPPER LOBES AND LLL ARE CLEAR. RLL HAS CRACKLES PRESENT. THIS MAY BE POSITIONAL SINCE PT IS CURRENTLY PORNING ON HIS RIGHT SIDE. PT DOES DESAT FAST INTO THE 70'S WHEN HE IS OFF THE C-PAP FOR A SHORT ABOUNT OF TIME. PT HOWEVER DOES ALSO RECOVER WELL. ABD SOUNDS PRESENT, NO PERIPH. EDEMA NOTED. URINE IS SOMEWHAT CONCENTRATED. WILL CONTINUE TO MONITOR.
--- NOTE | 2021-06-04 10:00 | NUR ---
PT STILL ON C-PAP. PT KEEPS PULLING IT OFF. PT STATED THAT HE FEELS SOMEWHAT ANXIOUS. WILL CALL MD FOR PRN ANXIETY MED.
--- NOTE | 2021-06-04 10:33 | NUR ---
PT NOW ON VAPOTHERM. PT STATED THAT HE NEEDED A BREAK FROM C-PAP. PT IS ON 40L 100% ON VAPOTHERM. PT NOW PRONING ON HIS RIGHT SIDE. PT TOOK ABOUT 10 MINUTES TO RECOVER THIS TIME AROUND. WILL CONTINUE TO MONITOR. CRACKLES NOW IN THE LLL.
--- NOTE | 2021-06-04 10:42 | NUR ---
PATIENT CALLED AND REQUESTS TO REMOVE THE CPAP AND WEAR THE VAPOTHERM. STATES HE HAS A BIT OF ANXIETY WITHT THE CPAP MASK ON. RN IN ROOM AT THIS TIME. VAPOTHERM 40L/100%, SLOW TO RECOVER, NOW ON LEFT SIDE, SATS 90-91%. CALL LIGHT AND PERSONAL ITEMS IN REACH.
--- NOTE | 2021-06-04 12:30 | NUR ---
UPPER LOBES CLEAR, LOWER LOBES HAVE BILATERAL CRACKLES PRESENT. PT STILL ON VAPOTHERM 40L 100%. PT EATING LUNCH AT THIS TIME. URINE OUPUT ADEQUATE, PO INTAKE ADEQUATE, PT NOW HAS A TEMP OF 100.4 F, PRN TYLENOL GIVEN. ALL TIPS OF HIS TOES AT THIS TIME ARE RED/ PUPLE IN APPEARANCE. PEDIS PULSES WDL. PT DENIES ANY PAIN, NUMBNESS/TINGLING IN ARMS AND LEGS. WILL CONTINUE TO MONITOR.
--- NOTE | 2021-06-04 13:05 | NUR ---
PT AT THIS TIME AGREED TO PRONE ON HIS STOMACH. O2 SATS >90% ON VAPOTHERM 40L 100%.
--- NOTE | 2021-06-04 15:00 | NUR ---
PT RESTING IN ROOM NOW ON HIS RIGHT SIDE. NO NEW CONCERNS NOTED AT THIS TIME.
--- NOTE | 2021-06-04 16:00 | NUR ---
RLL IS DIMINISHED, ALL OTHER LOBES AT THIS TIME ARE CLEAR. REDNESS ON TIPS OF HIS TOES HAS SUBSIDED AT THIS TIME. PT HAS BEEN BACK ON THE C-PAP SINCE ABOUT 1430 OR SO. PT NOW ON HIS LEFT SIDE AND C-PAP AT 60% AT THIS TIME. WILL CONTINUE TO MONITOR. IT SEEMS THAT THE PRN VISTARIL DID WELL FOR PT ANXIETY IN REGARDS TO WEARING C-PAP.
--- NOTE | 2021-06-04 16:10 | NUR ---
PT AT THIS TIME IS ALSO AFEBRILE AGAIN.
--- NOTE | 2021-06-04 17:56 | NUR ---
PT ATE VERY LITTLE OF HIS DINNER. SON IN ROOM NOW. PT NOW BACK ON C-PAP AT 40%.
--- NOTE | 2021-06-04 18:37 | NUR ---
SON STILL IN ROOM WITH PT. I INFORMED SON TO NOT BRING ANYMORE MEDICATIONS FROM HOME IN ZIP BLOCK BAGS. SON STATED THAT IT WAS VITAMIN C. SON DID AGREE TO NOT BRING ANYMORE MEDS FROM HOME.
--- NOTE | 2021-06-04 19:30 | NUR ---
REPORT RECEIVED FROM LUKAS MONCADA. SON IN TALKING WITH TOOLSMITH REGARDING POSSIBILITY OF COMING IN TO SEE PT AND INFECTION CONTROL PRECAUTIONS.
--- NOTE | 2021-06-04 19:58 | NUR ---
IN TO DO ASSESSMENT, PT DENIES PAIN. WEARING CPAP 16 AND 80% WITH SPO2 96%. LUNGS HAVE CRACKLES ON RIGHT SIDE, DIM ON LEFT, PT LYING UP ON RIGHT SIDE. DENIES NEEDS.
--- NOTE | 2021-06-04 21:15 | NUR ---
IN TO GIVE HS MEDS. PT AWAKE IN BED, HELPED TO REPOSITION MASK A BIT THEN STATES HE IS COMFORTABLE WITH IT. CONT ON CPAP 16/80% TCG466%.
--- NOTE | 2021-06-04 23:21 | NUR ---
PT CALLED TO USE BSC. HAD LARGE SOFT STOOL, REMAINED ON CPAP WHILE UP AND SPO2 REMAINED 96%, BACK TO BED, POSITIONED ONTO LEFT SIDE AND WANTING TO TRY TO SLEEP FOR THE NIGHT NOW. ASSESSMENT DONE, NO CRACKLES HEARD IN LUNGS THIS TIME BUT DIM ON RIGHT SIDE.
--- NOTE | 2021-06-05 02:00 | NUR ---
PT RESTING ON CPAP, RESP EVEN RATE 26 WITH SPO2 97%.
--- NOTE | 2021-06-05 03:45 | NUR ---
PT CALLED FOR SIP OF WATER, ASSISTED WITH REPOSITIONING AND TAKING SIPS OF WATER, CPAP BACK ON, NO FURTHER REQUESTS.
--- NOTE | 2021-06-05 06:00 | NUR ---
IN TO LOOK AT PT, PT RESTING APPEARS TO BE SLEEPING WEARING CPAP WITH SPO2 98%.
--- NOTE | 2021-06-05 07:30 | NUR ---
RECEIVED REPORT AT 0700. PT IN ROOM ON C-PAP.
--- NOTE | 2021-06-05 09:30 | NUR ---
UPPER LOBES CLEAR, PT NOW HAS BILATERALL CRACKLES PRESENT IN LOWER LOBES. PT NOW ALSO HAS INCREASED C-PAP NEEDS. C-PAP NOW ON 80%, VAPOTHERM MAYBE NOT POSSIBLE ANYLONGER. PT YESTERDAY WHILE EATING WAS ABLE TO MAINTAIN SATS IN THE MID TO UPPER 80'S. THIS MORNING, ON MAXED OUT VAPOTHERM, PT IS ONLY AT 80% O2 SATS. PT NOW IS PRONING ON HIS ABD. WILL CONTINUE TO MONITOR. URINE OUTPUT WDL. PO INTAKE WDL OVERALL.
--- NOTE | 2021-06-05 11:20 | NUR ---
AT THIS TIME CATHERINE HAS TAKEN OVER CARE.
--- NOTE | 2021-06-05 11:57 | NUR ---
PT INDEPENDENT WITH TRANSFER TO BSC AND INDEPENDENT WITH BED BATH WITH THE EXCEPTION OF LEGS AND FEET. LINEN CHANGED, FRESH ICE WATER GIVEN. NO FURTHER NEEDS AT THIS TIME.
--- NOTE | 2021-06-05 12:34 | NUR ---
THIS RN IN TO ASSESS PT AND ADMINISTER SCHEDULED MEDICATION. PT REPORTS NEEDING SOMETHING HE FEELS RESTLESS/ANXIOUS. PRN VISTARIL ADMINISTERED ALONG WITH SCHEDULED REMDESIVIR. PT ON CPAP AT THIS TIME ON 100% HE HAD JUST FINISHED BEING HELPED TO THE BATHROOM BY THE TASSEL MAKER. PT TITRATED DOWN TO 50% AND SAT UP ON THE BED TO EAT LUNCH. VITALS TAKEN, AND PT ASSESSED AT THIS TIME. PT THEN PLACED ON THE VAPOTHERM AT 40LPM 100% FIO2. PT ONLY ABLE TO STAY ON VAPOTHERM FOR ABOUT 10 MINUTES BEFORE DESATURATING ON THE VAPOTHERM. PT ABLE TO EAT HALF OF HIS MEAL AND TAKE IN FLUIDS BEFORE BEING PLACED BACK ON THE CPAP AT 50%. PT NOW RESTING AND LAYING ON HIS SIDE, REMDESEVIR STILL INFUSING AT THIS TIME. PT REPORTS NO FURTHER NEEDS WHEN ASKED, WILL CONTINUE PLAN OF CARE. CALL LIGHT IN REACH, BED IN LOWEST POSITION. PT ON CPAP AT THIS TIME, SPO2 90%, PT'S DAUGHTER IN ROOM WITH PT.
--- NOTE | 2021-06-05 13:33 | NUR ---
THIS RN IN TO CHECK ON PT. PT LAYING ON HIS RIGHT SIDE ON THE CPAP AT 50%, REMDESEVIR COMPLETE AT THIS TIME. PT REPORTS NO PAIN OR SHORTNESS OF BREATH WHEN ASKED AT THIS TIME. PT SALINE LOCKED AND ASSISTED INTO THE PRONE POSITION AT THIS TIME. PILLOWS PLACED UNDER PT FOR COMFORT AND PT PLACED IN REVERSE [place]. PT REPORTS NO FURTHER NEEDS AT THIS TIME, WILL CONTINUE PLAN OF CARE. CALL LIGHT IN REACH, BED IN LOWEST POSITION.
--- NOTE | 2021-06-05 17:05 | NUR ---
THIS RN IN TO ASSESS PT. PT LAYING ON HIS RIGHT SIDE ON THE CPAP. CPAP FIO2 AT 80% AND WAS TITRATED DOWN TO 60%, SPO2 MAINTAINING AT 90-94%. PT ABLE TO SIT UP AT THIS TIME. ASSESSMENT COMPLETED ON PT, PT DENIES HAVING ANY PAIN OR SOB WHEN ASKED. PT THEN PUT ON VAPOTHERM AT 40LPM 100% FIO2 TO EAT HIS DINNER. PT SPO2 MAINTAINING AT 88% WHILE ON THE VAPOTHERM AT THIS TIME. PT'S DAUGHTER NOW IN ROOM AT THIS TIME. PT REPORTS NO FURTHER NEEDS WHEN ASKED AND IS SITTING UP IN BED EATING DINNER. WILL CONTINUE PLAN OF CARE. CALL VINNIE LISA, BED IN LOWEST POSITION.
--- NOTE | 2021-06-05 17:28 | NUR ---
THIS RN IN TO PUT PT BACK ON THE CPAP. PT AWAKE AND ALERT ON THE VAPOTHERM AND HAD FINISHED EATING HIS DINNER. CPAP PLACED BACK ON AT PREVIOUS SETTINGS (60% FIO2). SPO2 AT THE TIME WAS 83-85%. PT NOW SITTING UP IN BED ON THE CPAP, SPO2 AT 94%, PT'S DAUGHTER AT THE BEDSIDE. PT REPORTS NO FURTHER NEEDS WHEN ASKED AND AT THIS TIME. WILL CONTINUE PLAN OF CARE. CALL LIGHT IN REACH, BED IN LOWEST POSITION.
--- NOTE | 2021-06-05 18:40 | NUR ---
RESPONDED TO PT CALL LIGHT. PT STATED HE HAD CALF PAIN ON HIS LEFT LEG. PEDAL PULSES ASSESSED AND ARE STRONG AND EQUAL BILATERALLY. CAPILLARY REFILL BRISK ON BOTH SIDES AND UNDER 2 SECONDS. PT DENIES NUMBNESS AND TINGLING. PT RATED PAIN 2/10. PRN TYLENOL ADMINISTERED AT THIS TIME AND PT ASSISTED IN REPOSITIONING ON TO HIS RIGHT SIDE. PT STILL ON CPAP AT 60%. PT REPORTS NO FURTHER NEEDS WHEN ASKED AT THIS TIME AND IS NOW ATTEMPTING TO GO TO SLEEP. PT'S DAUGHTER IN ROOM AT THIS TIME. WILL CONTINUE PLAN OF CARE. CALL LIGHT IN REACH, BED IN LOWEST POSITION.
--- NOTE | 2021-06-05 19:30 | NUR ---
REPORT RECEIVED FROM CATHERINE MONCADA. PT RESTING IN BED, WEARING CPAP, DAUGHTER IN ROOM.
--- NOTE | 2021-06-05 20:38 | NUR ---
SON HAD COME A LITTLE BIT A GO AND VISITED PT FOR A BIT, NOW SON AND DAUGHTER BOTH LEAVING FOR THE NIGHT, PT DENIES NEEDS.
--- NOTE | 2021-06-05 21:00 | NUR ---
IN ROOM AT THIS TIME. PT SLEEPING SOUNDLY IN LEFT SIDE LAYING POSITION. CPAP IN PLACE. SPO2 =92%. RESPIRATIONS EVEN AND UNLABORED. HEART RATE IN THE 60-70S AT REST. ASSESSMENT AND VITAL SIGNS DEFFERED AT THIS TIME SO PT CAN REST. WILL CONTINUE TO MONITOR.
--- NOTE | 2021-06-05 21:50 | NUR ---
IN TO DO ASSESSMENT AND HS MEDS. PT HAS BEEN SLEEPING, AWAKENS EASILY. TAKES SIPS OF WATER WITH MEDS, SPO2 DOWN TO 80'S WITH MASK OFF. CPAP BACK ON, SPO2 UP TO 93%, ASSISTED PT TO RIGHT SIDE. PRN COUGH MEDICINE AND VISTARIL GIVEN WITH HS MEDS.
--- NOTE | 2021-06-05 23:50 | NUR ---
PT CONTINUES TO REST ON LEFT SIDE, WEARING CPAP 16/60% AND SPO2 92% RR 22.
--- NOTE | 2021-06-06 00:28 | NUR ---
responded to PTs call light. assisted pt with repositioning in bed. Cpap in place. pt laying on left side. call light within reach. denies further needs at this time.
--- NOTE | 2021-06-06 03:00 | NUR ---
PT CALLED TO ASK FOR LEMON WATER, "THIS STUFF JUST ISNT' QUENCHING MY THIRST." GOT PT SOME LEMON CRYSTAL LIGHT WHICH HE SAYS HE LIKES. SIPS OF LEMON WATER GIVEN, THEN PT STATES THERE IS A FILM ON THE INSIDE OF HIS MOUTH. ORAL SWABS GIVEN TO PT AND HE CLEANS HIS MOUTH OUT THEN PUT CPAP BACK ON. ASSESSMENT DONE AND PT BACK TO SIDE LYING TO TRY TO SLEEP MORE.
--- NOTE | 2021-06-06 05:28 | NUR ---
LAB IN ROOM FOR BLOOD DRAW
--- NOTE | 2021-06-06 09:05 | NUR ---
SHIFT REPORT RECEIVED FROM ANTWAN CALDWELL. ASSESSMENT COMPLETED. PT IS ALERT/ORIENTED, DENIES PAIN. LUNGS CLEAR/DIM, SCATTERED FINE CRACKLES IN BASES. WAS ON CPAP 16 @ 60%, PLACED ON VAPOTHERM 40L @ 100% FOR BREAKFAST. HR REGULAR. BOWEL TONES ACTIVE, DENIES NAUSEA. SKIN GROSSLY INTACT WITHOUT EDEMA. IV INTACT AND PATENT. URINAL EMPTIED. PT DENIES NEEDS, CALL LIGHT WITHIN REACH.
--- NOTE | 2021-06-06 09:40 | NUR ---
PT FINISHED WITH BREAKFAST. SPO2 ~ 80%, CPAP 16 PLACED BACK ON PT, FIO2 TITRATED TO 70% FOR PT TO RECOVER. PT POSITIONED HIMSELF ON RIGHT SIDE, DENIES FURTHER NEEDS AT THIS TIME. CALL LIGHT WITHIN REACH.
--- NOTE | 2021-06-06 12:00 | NUR ---
IN TO START REMDESIVIR INFUSION. IV REMAIN INTACT AND PATENT. PT LUNCH ARRIVED, PT DENIES HUNGER AT THIS TIME. REMAINS ON CPAP 16, FIO2 TITRATED TO 65%. LUNGS REMAIN CLEAR/DIM, SCATTERED FINE CRACKLES IN BASES. REMAINDER OF ASSESSMENT UNCHANGED. PT ASSISTED TO REPOSITION TO LEFT SIDE WITH PILLOW SUPPORT. NO FURTHER REQUESTS, CALL LIGHT WITHIN REACH.
--- NOTE | 2021-06-06 13:10 | NUR ---
PT FINISHED WITH LUNCH, ONLY ATE ICE CREAM CUP. BACK ONTO CPAP 16, FIO2 INCREASED TO 70% FOR PT TO RECOVER. PT POSITIONED HIMSELF ON LEFT SIDE. NO FURTHER REQUESTS.
--- NOTE | 2021-06-06 14:50 | NUR ---
PT RESTING WITH EYES CLOSED, NO APPARENT DISTRESS. CPAP IN PLACE AT 16 @ 70%.
--- NOTE | 2021-06-06 16:00 | NUR ---
ASSESSMENT COMPLETED AND UNCHANGED. PT REMAINS ON CPAP 16 @ 70%. DENIES PAIN OR SOB. URINAL EMPTIED. PT REPOSITIONED TO SUPINE. CALL LIGHT WITHIN REACH.
--- NOTE | 2021-06-06 17:28 | NUR ---
PT PLACED ON VAPOTHERM 40L @ 100% FOR DINNER.
--- NOTE | 2021-06-06 18:01 | NUR ---
PT FINISHED WITH DINNER, PLACED BACK ONTO CPAP 16 @ 70%. PT FINISHED ABOUT 25% OF DINNER. NO FURTHER NEEDS AT THIS TIME, CALL LIGHT WITHIN REACH.
--- NOTE | 2021-06-06 19:37 | NUR ---
REPORT RECEIVED FROM DAY SHIFT RN. PT RESTING WEARING CPAP, SPO2 93%.
--- NOTE | 2021-06-06 20:38 | NUR ---
PT DAUGHTER AT BEDSIDE AT THIS TIME. SPO2= 90% ON CPAP AT 60%. CALL LGIHT WITHIN REACH. NO ASSESSED NEEDS AT THIS TIME.
--- NOTE | 2021-06-06 22:30 | NUR ---
IN TO GIVE HS MEDS AND DO ASSESSMENT. PT LYING ON HIS LEFT SIDE. LUNGS DIM ON RIGHT AND CLEAR WITH FC IN BASE ON LEFT. WEARING CPAP 16/70% WITH SPO2 92%. APPLE JUICE GIVEN PER REQUEST, NO FURTHER NEEDS.
--- NOTE | 2021-06-06 22:31 | NUR ---
DAUGHTER LEAVING FOR THE NIGHT, QUESTIONS ANSWERED.
--- NOTE | 2021-06-07 | NUR ---
PT CONT TO REST WEARING CPAP
--- NOTE | 2021-06-07 02:27 | NUR ---
PT USED URINAL IN BED, CALLED FOR ASSISTANCE WITH GETTING CPAP MASK BACK ON. ASSESSMENT DONE, PT DENIES NEEDS, STATES HE HAS BEEN ABLE TO SLEEP.
--- NOTE | 2021-06-07 03:50 | NUR ---
PT TOOK OFF VAPOTHERM AND PULSE OXIMETER. IN ROOM A THIS TIME. PT PLACED BACK ON CPAP AT 75%. PT UNWILLING TO TURN ONTO SIDE AT THIS TIME. BED ALARM IN PLACE. WILL CONTINUE TO MONITOR.
--- NOTE | 2021-06-07 04:30 | NUR ---
IN TO HELP PT ADJUST CPAP MASK, DENIES NEEDS.
--- NOTE | 2021-06-07 06:51 | NUR ---
PT HAS SLEPT FOR THE LAST COUPLE OF HOURS, CONT TO WEAR CPAP 16/70% WITH SPO2 MID 90S.
--- NOTE | 2021-06-07 07:51 | NUR ---
REPORT RECEIVED FROM NIGHTSHIFT RN, WILL CONTINUE PLAN OF CARE.
--- NOTE | 2021-06-07 08:19 | NUR ---
PATIENT AWAKE I BED. BREAKFAST OREDERED, FACE AND HANDS WASHED. ROOM TIDIED AND VITALS CHARTED. CALL LIGHT I REACH
--- NOTE | 2021-06-07 09:47 | NUR ---
THIS RN IN TO ASSESS PT AND ADMINISTER SCHEDULED MEDICATIONS. PT LAYING IN BED AT THIS TIME ON THE CPAP AT 60%, SPO2 92%. PT ALERT AND ORIENTED TO SELF, LOCATION, EVENT, BUT NOT YEAR AND THOUGHT IT WAS 2021. PT ANSWERING ALL OTHER QUESTIONS APPROPRIATELY AND DENIES ANY SHORTNESS OF BREATH OR PAIN AT THIS TIME WHEN ASKED. PT ASSESSED AT THIS TIME AND THEN SAT UP ON THE BED. PT THEN PLACED ON THE VAPOTHERM AT 40LPM 100% FIO2 TO TAKE HIS PO MEDICATIONS. SCHEDULED MEDICATIONS ADMINISTERED AND PT NOW EATING BREAKFAST. SPO2 88-90% ON THE VAPOTHERM. AFTER A FEW MINUTES OF EATING PT STATED HE NEEDED TO USE THE URINAL, PT PLACED BACK ON THE CPAP WHILE USING THE URINAL. PT STATED HE WANTED TO STAY ON THE CPAP AND DID NOT FINISH HIS BREAKFAST. PT ASSISTED INTO A RIGHT SIDE LYING POSITION FOR THE TIME BEING AND PLANS TO PRONE LATER ON. PT REPORTS NO FURTHER NEEDS WHEN ASKED, WILL CONTINUE PLAN OF CARE. CALL LIGHT IN REACH, BED IN LOWEST POSITION. PT ON THE CPAP, SPO2 92%.
--- NOTE | 2021-06-07 11:45 | NUR ---
OFF OF CPAP, NOW ON VAPOTHERM 40 L AT 100% FIO2. PATIENT ASKING OF DRING OF WATER AND USED URINAL TO VOID 125 ML OF CONCENTRATED URINE. REQUESTED TYLENOL C/O GENERALIZED DISCOMFORT.
--- NOTE | 2021-06-07 11:49 | NUR ---
TYLENOL 650 MG, TESSALON PERLES, AND ROBITUSSIN GIVEN FOR GRENRAL DISCOMFORT AND COUGH. REMAINS ON VAPOTHERM. DENIES FUTHER NEEDS, CALL LIGHT WITHIN REACH.
--- NOTE | 2021-06-07 12:30 | NUR ---
CPAP REAPPLIED O2 SAT 82. PATIENT DENIES OTHER NEEDS. LAYING ON LEFT SIDE. HOB AT 20 DEGRESS.
--- NOTE | 2021-06-07 13:00 | NUR ---
THIS RN IN TO ASSESS PT. PT LAYING ON HIS SIDE ON THE CPAP AT 50% FIO2 AWAKE AND ALERT. VITALS TAKEN AT THIS TIME AND ASSESSMENT COMPLETED. PT DENIES HAVING ANY PAIN AT THIS TIME AND DENIES SHORTNESS OF BREATH WHEN ASKED. PT ABLE TO REPOSITION HIMSELF IN BED AND SIT UP IN ORDER TO EAT HIS LUNCH. PT PLACED ON THE VAPOTHERM AT 40LPM 100% FIO2 TO EAT LUNCH. PT NOW EATING LUNCH AT THIS TIME, SPO2 MAINTAINING 90-93% AT THIS TIME ON THE VAPOTHERM. PT REPORTS NO FURTHER NEEDS WHEN ASKED AT THIS TIME, WILL CONTINUE PLAN OF CARE. CALL LIGHT IN REACH, BED IN LOWEST POSITION, WILL CONTINUE PLAN OF CARE.
--- NOTE | 2021-06-07 14:40 | NUR ---
RN SONYA, SN FRIEND, CICI VASQUEZ IN PT'S ROOM AT THIS TIME PROVIDING ORAL HYGIENE CARE. PT ASSISTED IN PRONING AT THIS TIME BY THEM. PT'S FAMILY NOW IN ROOM AT THIS TIME WITH PT, NO FURTHER NEEDS REPORTED AT THIS TIME, WILL CONTINUE PLAN OF CARE.
--- NOTE | 2021-06-07 14:45 | NUR ---
ANSWERED CALL LIGHT, PATIENT ASKED FOR ASSISTANCE IN PRONING IN BED. 2PA, PATIENT NOW ON STOMACH, PILLOWS UNDER CHEST, CPAP IN PLACE. PATIENTS AND DAUGHTER NOW IN ROOM, WEARING PPE. TEETH BRUSHED CALL LIGHT IN REACH, NO OTHER NEEDS AT THIS TIME
--- NOTE | 2021-06-07 15:51 | NUR ---
THIS RN IN TO ASSESS PT AT THIS TIME. PT LAYING IN BED AT THIS TIME ON HIS RIGHT SIDE ON THE CPAP AT 50% FIO2, SPO2 89-90%. PT'S DAUGHTER AND IN ROOM AT THIS TIME, MOTHER GIVEN AN UPDATE ON THE PT AND INFORMED ON THE PLAN OF CARE. PT VITALS THEN TAKEN AND PT ASSESSED. PT DENIES HAVING ANY PAIN WHEN ASKED AND DENIES SHORTNESS OF BREATH WHEN ASKED. PT ENCOURAGED TO PRONE BUT STATED HE HAD JUST FINISHED PRONING, PT INSTEAD TURNED TO HIS LEFT SIDE FROM HIS RIGHT SIDE. RT IN ROOM AT THIS TIME TO ASSESS PT. CPAP SETTINGS UNCHANGED. PT REPORTS NO FURTHER NEEDS AT THIS TIME WHEN ASKED, CALL LIGHT IN REACH, BED IN LOWEST POSITION, PT'S IN ROOM, WILL CONTINUE PLAN OF CARE.
--- NOTE | 2021-06-07 17:17 | NUR ---
PT RESTING IN BED AT THIS TIME LAYING ON HIS RIGHT SIDE ON THE CPAP. WATER PROVIDED TO PT AT THIS TIME. PT REPORTS NO FURTHER NEEDS WHEN ASKED AT THIS TIME, PT ABLE TO DRINKI WATER AND PLACE CPAP BACK ON. PT NOW RESTING ON HIS RIGHT SIDE, CPAP SETTINGS UNCHANGED, SPO2 90-92%. CALL LIGHT IN REACH, BED IN LOWEST POSITION, PT'S IN ROOM AT THE BEDSIDE.
--- NOTE | 2021-06-07 18:13 | NUR ---
THIS RN IN TO CHECK ON PT. PT HAD JUST FINISHED EATING HIS DINNER AND WAS BACK ON THE CPAP AT 50% FIO2. PT SPO2 WAS AT 84% AND INCREASED BACKUP TO 93% WITH THE CPAP BACK ON. PT ABLE TO FINISH MOST OF HIS DINNER, REPORTED PT'S OUTPUT ON THE URINAL AND INTAKE. PT REPOSITIONED BACK TO HIS RIGHT SIDE AT THIS TIME AND STATES HE WILL PRONE ONCE THE FOOD SETTLES. PT REPORTS NO FURTHER NEEDS AT THIS TIME WHEN ASKED, WILL CONTINUE PLAN OF CARE. CALL LIGHT IN REACH, BED IN LOWEST POSITION, PT'S IN ROOM AT THE BEDSIDE.
--- NOTE | 2021-06-07 18:35 | NUR ---
PT CHECKED ON AT THIS TIME, PT PRONING AND WAS ASSISTED INTO THE PRONE POSITION BY HIS . PT REPORTS NO NEEDS AT THIS TIME AND REMAINS ON THE CPAP, SETTINGS UNCHANGED, WILL CONTINUE PLAN OF CARE. CALL LIGHT IN REACH, BED IN LOWEST POSITION.
--- NOTE | 2021-06-07 19:15 | NUR ---
report recieved, care of patient assumed at this time. pt resting on cpap. at bedside. denies any needs at this time.
--- NOTE | 2021-06-07 19:30 | NUR ---
REPORT RECEIVED FROM DAY SHIFT RN. IN ROOM WITH PT RESTING ON CPAP.
--- NOTE | 2021-06-07 19:50 | NUR ---
IN TO DO ASSESSMENT, PT RESTING ON RIGHT SIDE WITH CPAP 16/50%. ASSESSMENT DONE, LUNGS CLEAR/DIM IN BASES. DENIES NEEDS AT THIS TIME.
--- NOTE | 2021-06-07 22:00 | NUR ---
PT CONT TO REST ON CPAP, SPO2 95%.
--- NOTE | 2021-06-08 00:23 | NUR ---
IN TO DO ASSESSMENT AND VS. PT HELPED WITH SIPS OF APPLE JUICE. WARM BLANKET PROVIDE. BACK TO SLEEP ON CPAP 16/60%.
--- NOTE | 2021-06-08 02:00 | NUR ---
PT HAS BEEN RESTING WEARING CPAP, SPO2 92%, RR 22.
--- NOTE | 2021-06-08 04:00 | NUR ---
WILL DEFER ASSESSMENT UNTIL PT WAKES UP. CONT TO WEAR CPAP WITH SPO2 92%.
--- NOTE | 2021-06-08 07:58 | NUR ---
CPAP DECREASED PER FIO2 PEEP LADDER BOZENA WELL WOB OK SPO2 MAINTAINED ABOVE 90% AT THIS TIME. BBS DIMINISHED WITH SCATTERED RALES IN THE BASES.
--- NOTE | 2021-06-08 08:45 | NUR ---
PATIENT WOKE TO VOICE C/O PAIN ALL OVER, RN IN ROOM. GOWN CHANGED, PATIENT REPOSITIONED ONTO LEFT SIDE. PATIENT WEARING VAPOTHERM FOR MEDS AND DRINK OF WATER, PATIENT UNABLE TO KEEP O2 SATS ABOVE 70% WITH VAPOTHERM. CPAP NOW ON. ROOM TIDIED, FLOOR MOPPED. CALL LIGHT IN REACH
--- NOTE | 2021-06-08 09:10 | NUR ---
Pt in bed getting morning cares from CICI Sorenson. Tried to put on vapotherm but pt satting in 70s, switched back to cpap. Adminstered morning meds, repositioned to left side. Cpap adjusted to 16 and 60. Pt unable to eat breakfast due to oxygen levels.
--- NOTE | 2021-06-08 12:41 | NUR ---
Pt sitting up for lunch with at bedside. Preoxygenated via cpap at 100% before switching to vapotherm at 40 and 100%. Reminded pt to recover between bites to maintain o2 sats.
--- NOTE | 2021-06-08 12:45 | NUR ---
PATIENT AWAKE IN BED EATING LUNCH, AT BEDSIDE. PATIENT ON VAPROTHERM AT THIS TIME, SATURATIONS AT MID 80'S WHILE EATING. URINAL DUMPED. CALL LIGHT IN REACH.
--- NOTE | 2021-06-08 14:43 | NUR ---
DUYEN SCHEDULED AB, STARTED NEW IV FOR MULTIPLE INFUSIONS. SPOKE WITH PTS REGARDING CPAP CLEANLINESS AND ANSWERED HER QUESTIONS ABOUT HOW\WHY HE HAS A BACTERIAL INFECTION. PT LAYING ON LEFT SIDE WITH CPAP ON.
--- NOTE | 2021-06-08 16:07 | NUR ---
NO CHANGES AT THIS TIME IN D/C PLAN.
--- NOTE | 2021-06-08 16:11 | NUR ---
PT INSISTED ON SEEING THE MOST RECENT XRAYS FROM TODAY. PT GAVE VERBAL PERMISSION. PT PRONING WITH BOPPY PILLOW, WORKS WELL. PT STATES HE IS COMFORTABLE. SATS 99% ON CPAP.
--- NOTE | 2021-06-08 16:46 | NUR ---
PT ROLLED TO RIGHT SIDE AFTER PRONING FOR OVER 2 HOURS. UNTANGLED ALL THE CORDS, REAPPLIED SOME OF THE LEADS. OFFERED BED BATH, WE WILL DO BEFORE DINNER AND ATTEMPT TO GET UP IN CHAIR TO CHANGE BEDDING.
--- NOTE | 2021-06-08 17:37 | NUR ---
Pt preoxygenated via cpap at 16/100, then given bedbath by RN Lashaun and and changed into fresh briefs. Pt got up to bedside chair and bedding changed. Resting in chair waiting for dinner to arrive.
--- NOTE | 2021-06-08 19:30 | NUR ---
REPORT RECEIVED FROM SONYA MONCADA. PT UP IN CHAIR WEARING VAPOTHERM WITH AND DAUGHTER IN ROOM, DENIES NEEDS AT THIS TIME.
--- NOTE | 2021-06-08 21:15 | NUR ---
IN TO DO HS MEDS AND ASSESSMENT. PT WAS ON BSC, WEARING VAPOTHERM WITH SPO2 90'S. HE STOOD UP AND GOT INTO BED AND WITH THAT ACTIVITY HIS SATS DROPPED DOWN INTO 70'S AND TOOK APPROX 15 MINUTES TO COME BACK UP, CPAP PLACED WITH 16/100% TO GET SATS UP. WILL TITRATE O2 DOWN PTS SATS IMPROVE. PT WAITING FOR DAUGHTER TO RETURN FROM DISCUSSION WITH DOCTOR BEFORE HE IS READY TO LAY DOWN AND SLEEP FOR THE NIGHT. LUNGS DIM IN BASES, MORE ON RIGHT.
--- NOTE | 2021-06-08 21:42 | NUR ---
PT'S DAUGHTER AMOS IN HALLWAY WEARING DIRTY PPE. ASKING THAT THE VANCOMYCIN BE DC'D. DR. PHELPS, VIBRATOR OPERATOR YUAN, PT'S DAUGHTER, AND NYDIA ROBLES VIA TELEPHONE SPOKE IN A GROUP DISCUSSION ABOUT THE PT'S FAMILY CONCERNS. PER PT AND FAMILY REQUEST THE VANCOMYCIN HAS BEEN DC'D. DR PHELPS GAVE THIS RN A VERBAL ORDER AT THIS TIME. TO DC THE VANCOMYCIN AFTER DISCUSSING WITH FAMILY THE RISKS INVOLVED WITH DISCONTINUING THE MEDICAITON. AMOS REMAINS ADAMANT THAT THE MEDICATION NEEDS TO BE DISCONTINUED. DAUGHTER AMOS AT THIS TIME REQUESTS AZITHROMYCIN TO BE ADMINISTERED. DR PHELPS EXPLAINED STANDARDS OF CARE AGAIN TO PT. PT DAUGHTER REQUESTING IV VITAMIN C BE ADMINISTERED. DR PHELPS AGAIN EXPLAINED THAT THIS IS NOT STANDARD OF CARE. PLAN ESTABLISHED TO HAVE A CARE CONFERENCE WITH FAMILY, DR PHELPS, ARCHITECTURAL SUPERINTENDENT JAZMIN LOPES, AND PICKING TABLE WORKER SERVICES ROBERTO SINGLETON.
--- NOTE | 2021-06-08 23:02 | NUR ---
DISCUSSION WITH DAUGHTER AMOS ABOUT PLAN FOR THE NIGHT, SHE STATES THE FAMILY DECIDED TO KEEP THINGS " IS FOR TONIGHT" AND STATED THEY WOULD ALLOW THE VANCOMYCIN TO BE GIVEN TONIGHT AND REEVALUATE TOMORROW MORNING CARE CONFERENCE. DAUGHTER THEN LEFT FOR THE NIGHT. CALL TO DR PHELPS TO UPDATE HIM AND HE STATES HE WILL REORDER VANCO. STONE MONCADA CALLED PT WITH PT ON SPEAKER PHONE WITH THIS RN TO HAVE DOUBLE VERIFICATION AND WITNESS THAT AMOS DID WANT THE VANCO ADMINISTERED TONIGHT, AND SHE DID STATE "YES GIVE IT FOR TONIGHT". VANCO GIVEN, PT INFORMED AND GIVEN ROBITUSSIN PRN AND READY TO TRY TO SLEEP FOR THE NIGHT. CALL LIGHT IN REACH.
--- NOTE | 2021-06-08 23:51 | NUR ---
IN TO DISCONNECT ANTIBIOTICS, PT AWAKENS EASILY, DENIES NEEDS. BACK TO SLEEP.
--- NOTE | 2021-06-09 01:42 | NUR ---
PT RESTING ON CPAP. FIO2 80%, SPO2 97% SOT TURNED DOWN TO FIO2 60%/
--- NOTE | 2021-06-09 03:27 | NUR ---
PT ASLEEP ON CPAP. SPO2 = 92% ON 60% FIO2. PT LAYING IN LEFT SIDE LYING POSITION. CALL LIGHT WITHIN REACH. NO FURTHER ASSESSED NEEDS AT THIS TIME.
--- NOTE | 2021-06-09 05:31 | NUR ---
LAB IN TO DRAW. PT REQUESTS TEA
--- NOTE | 2021-06-09 06:30 | NUR ---
IN TO CHECK ON PT, START IV ABX. PT DENIES NEEDS, ORDERED BREAKFAST, LAYING ON LEFT SIDE.
--- NOTE | 2021-06-09 07:45 | NUR ---
CPAP DECREASED TO 14 PER PEEP LADDER FIO2 DECREASED TO 55% BOZENA WELL WOB OK. PT PROTECTING OWN AIRWAY AT THIS TIME BVM AT BEDSIDE. BBS DIMINISHED WITH RALES IN BASES.
--- NOTE | 2021-06-09 09:20 | NUR ---
THIS RN IN TO ASSESS PT AND ADMINISTER SCHEDULED MEDICATIONS. PT LAYING IN BED AT THIS TIME AWAKE AND ALERT ON THE CPAP AT 55% FIO2. PT REPORTS GENERALIZED ACHES AND PAIN ON HIS HIPS, PT ALSO REQUESTED PRN COUGH MEDICATION AT THIS TIME. SCHEDULED MEDICATIONS ADMINISTERED ALONG WITH PRN TYLENOL, ROBITUSSIN, AND TESSALON PERLES (SEE MAR). SCHEDULED IV VANCOMYCIN NOW INFUSING ALONG WITH SCHEDULED CEFEPIME. PT SAT UP IN BED AND PLACED ON THE VAPOTHERM AT 40LPM 100% FIO2 TO EAT HIS BREAKFAST. PT NOW ON THE VAPOTHERM, SPO2 88-90%, AND IS EATING BREAKFAST. PT REPORTS NO FURTHER NEEDS AT THIS TIME WHEN ASKED, WILL CONTINUE PLAN OF CARE. CALL LIGHT IN REACH, BED IN LOWEST POSITION.
--- NOTE | 2021-06-09 09:37 | NUR ---
DR. PHELPS IN ROOM AT THIS TIME TO ASSESS PT AND UPDATE ON PLAN OF CARE. PT ON THE VAPOTHERM AT THIS TIME AT 40LPM 100% FIO2 EATING BREAKFAST. SPO2 85-88% AT THIS TIME, LABORED BREATHING NOTED. PT REPORTS NO NEEDS AT THIS TIME WHEN ASKED AND STATES HE WILL PUT HIS CPAP BACK ON WHEN HE IS FINISHED WITH HIS BREAKFAST. CALL LIGHT IN REACH, BED IN LOWEST POSITION, IV ABX INFUSING ORDERED.
--- NOTE | 2021-06-09 09:45 | NUR ---
PT FINISHED EATING BREAKFAST AT THIS TIME WHILE ON THE VAPOTHERM AND WAS PLACED BACK ON THE CPAP AT 55% FIO2. PT REPORTS NO FURTHER NEEDS AT THIS TIME WHEN ASKED AND IS SITTING UP IN BED AT THIS TIME. WILL CONTINUE PLAN OF CARE. CALL LIGHT IN REACH, BED IN LOWEST POSITION. IV ABX INFUSING ORDERED.
--- NOTE | 2021-06-09 10:25 | NUR ---
THIS RN IN TO CHECK ON PT, PT LAYING ON HIS RIGHT SIDE ON THE CPAP AT 55%, SPO2 90%. PT AWAKE AND ALERT AND RESTING. VANCOMYCIN COMPLETED AT THIS TIME, IV CEFEPIME STILL INFUSING ORDERED. PT PROVIDED WITH ICE WATER AT THIS TIME, AND URINAL EMPTIED. PT REPORTS NO FURTHER NEEDS WHEN ASKED AT THIS TIME AND IS RESTING ON HIS RIGHT SIDE IN BED, SPO2 90%, WILL CONTINUE PLAN OF CARE. CALL LIGHT IN REACH, BED IN LOWEST POSITION. IV ABX INFUSING ORDERED.
--- NOTE | 2021-06-09 11:50 | NUR ---
THIS RN IN TO ASSESS PT AT THIS TIME. PT LAYING ON HIS RIGHT SIDE RESTING AT THIS TIME AWAKE AND ALERT. PT VITALS TAKEN AND PT ASSESSED. PT STATED THAT HE NEEDED TO VOID AT THIS TIME. PT STATED HE WAS HAVING A HARD TIME VOIDING INTO URINAL AND WANTED TO USE THE BSC AND THEN TRANSITION INTO A PRONE POSITION. PT FIO2 INCREASED FROM 55% TO 100%, PT ABLE TO GET UP AND PIVOT TO THE BEDSIDE COMMODE, VOID, AND THEN GET UP AND GET ONTO THE BED AND PRONE. PT NOTED TO BECOME SHORT OF BREATH BUT DENIES LIGHTHEADEDNESS WHEN ASKED. PT NOW PRONING ON THE BED, PILLOWS UNDER PT FOR COMFORT, FIO2 DECREASED TO 55%, SPO2 NOW AT 93-95% AND MAINTAINING. PT REPORTS NO FURTHER NEEDS AND IS NOW RESTING ON THE BED, PRONING, ON THE CPAP. WILL CONTINUE PLAN OF CARE. CALL LIGHT IN REACH, BED IN LOWEST POSITION, IV ABX INFUSING ORDERED.
--- NOTE | 2021-06-09 12:45 | NUR ---
THIS RN BROUGHT THE PT'S LUNCH AT THIS TIME. PT PRONING IN THE BED ON THE CPAP AT 55% FIO2, SPO2 95%. PT IV ABX COMPLETED, PT SALINE LOCKED AT THIS TIME, PT ABLE TO SIT UP IN BED. PT PLACED ON 15+ L ON THE NONREBREATHER MASK TO EAT HIS LUNCH. SPO2 MAINTAINING AT 92-95% ON IT. PT REPORTS NO FURTHER NEEDS AT THIS TIME AND IS NOW EATING LUNCH WHILE ON THE NRB MASK. CALL LIGHT IN REACH, BED IN LOWEST POSITION. WILL CONTINUE PLAN OF CARE.
--- NOTE | 2021-06-09 13:45 | NUR ---
DR. PHELPS UPDATED THIS RN ON THE PT'S CHANGE IN CODE STATUS FROM DNR TO FULL CODE, WILL CONTINUE PLAN OF CARE.
--- NOTE | 2021-06-09 13:57 | NUR ---
PATIENT ON A REGULAR DIET. PO INTAKE VARIES - HE ATE 40% OF BREAKFAST TODAY BUT DID NOT EAT MUCH YESTERDAY DUE TO DIFFICULTY BREATHING. HE HAS HAD A FEW ENSURES SINCE BEING HERE. PLEASE CONTINUE TO PROVIDE ENSURE TO PATIENT TO ENHANCE HIS CALORIE AND PROTEIN INTAKE THROUGHOUT THE DAY.
--- NOTE | 2021-06-09 14:35 | NUR ---
RESPONDED TO PT CALL LIGHT, IN PT'S ROOM AT THIS TIME AND STATED PT WANTED TO PRONE. PT BED SITUATED, WIRES MANAGE, PT ABLE TO PRONE ON WITHOUT HELP. SCHEDULED IV ABX NOW INFUSING ORDERED (SEE MAR). PT REPORTS NO FURTHER NEEDS AT THIS TIME AND IS NOW RESTING IN BED PRONED, FIO2 DECREASED TO 50% PT'S SPO2 WAS 96%. PT IN ROOM AT THE BEDSIDE, IV ABX INFUSING ORDERED, CALL LIGHT IN REACH, BED IN LOWEST POSITION, PT'S SPO2 96%.
--- NOTE | 2021-06-09 15:30 | NUR ---
PT CHECKED ON AT THIS TIME. PT LAYING IN BED RESTING ON HIS RIGHT SIDE ON THE CPAP AT 50% FIO2, SPO2 93%. PT'S STATES HE JUST FINISHED SWITCHING TO HIS SIDE AND PRONED FOR ABOUT AN HOUR. PT REPORTS NO FURTHER NEEDS AT THIS TIME AND IS RESTING ON HIS SIDE. CALL LIGHT IN REACH, BED IN LOWEST POSITION, WILL CONTINUE PLAN OF CARE.
--- NOTE | 2021-06-09 15:40 | NUR ---
RT IN ROOM WITH PT AT THIS TIME, WILL CONTINUE PLAN OF CARE.
--- NOTE | 2021-06-09 15:55 | NUR ---
RT NOTIFIED THIS RN THAT CPAP WAS CHANGED FROM 14 TO 13, PT LEFT ON 50% FIO2, SPO2 MAINTAINING AT 90-91%, WILL CONTINUE PLAN OF CARE.
--- NOTE | 2021-06-09 16:31 | NUR ---
THIS RN IN TO ASSESS PT. PT LAYING ON HIS RIGHT SIDE AWAKE AND ALERT ON THE CPAP AT PREVIOUS SETTINGS, SPO2 91%. AT THE BEDSIDE WITH THE PT AT THIS TIME. VITALS TAKEN AND PT ASSESSED AT THIS TIME. PT NOW SITTING UP IN BED. PT REQUESTED GREEN TEA AND PRN COUGH MEDICATION AT THIS TIME. PT DENIED HAVING ANY SHORTNESS OF BREATH OR PAIN WHEN ASKED. HOT TEA PROVIDED AND PRN ROBITUSSIN ADMINISTERED (SEE MAR) FOR A COUGH. PT CURRENTLY ON THE NONREBREATHER MASK AT 15+L DRINKING TEA. SPO2 MAINTAINING AT 88-90% ON THE NONREBREATHER. PT REPORTS NO FURTHER NEEDS WHEN ASKED AT THIS TIME, CPAP AT THE BEDSIDE, CALL LIGHT IN REACH, BED IN LOWEST POSITION. IV LEVOFLOXACIN COMPLETED AT THIS TIME, IV SALINE LOCKED, IV CEFEPIME STILL INFUSING ORDERED, WILL CONTINUE PLAN OF CARE.
--- NOTE | 2021-06-09 16:59 | NUR ---
PT RESTING IN BED A THIS TIME AND IS BACK ON THE CPAP AT THE PREVIOUS SETTINGS. SPO2 AT 94%, PT LAYING ON HIS RIGHT SIDE, RESPIRATIONS NOTED. PT IN NO APPARENT DISTRESS AND WAS LEFT UNDISTURBED. CALL LIGHT IN REACH, BED IN LOWEST POSITION, PT'S IN ROOM, WILL CONTINUE PLAN OF CARE.
--- NOTE | 2021-06-09 17:16 | NUR ---
ANTWAN STAFFORD IN THE PT'S ROOM AT THIS TIME. PT IN THE ROOM ON THE CPAP AT PREVIOUS SETTINGS, PT AWAKE AND ALERT. PT'S IN ROOM AT THIS TIME WELL. PT'S DINNER BROUGHT TO HIM AT THIS TIME BY ANTWAN STAFFORD. PT PLACED ON THE NRB MASK 15+L BY ANTWAN STAFFORD TO EAT HIS DINNER. NO FURTHER NEEDS REPORTED AT THIS TIME, WILL CONTINUE PLAN OF CARE. CALL LIGHT IN REACH, BED IN LOWEST POSITION, IV ABX INFUSING ORDERED, PT'S AND ANTWAN STAFFORD IN ROOM AT THIS TIME.
--- NOTE | 2021-06-09 18:06 | NUR ---
ANTWAN STAFFORD OUT OF ROOM AT THIS TIME, INTAKE AND OUTPUT REPORTED TO THIS RN, PT REPORTS NO NEEDS AT THIS TIME, WILL CONTINUE PLAN OF CARE.
--- NOTE | 2021-06-09 18:47 | NUR ---
PT CHECKED ON AT THIS TIME, PT RESTING ON HIS RIGHT SIDE ON THE CPAP. PT WAS SLEEPING BUT AWOKE EASILY, PT REPORTED NO NEEDS WHEN ASKED AND STATED HE WAS GOING BACK TO SLEEP. PT BACK ON HIS RIGHT SIDE, CPAP IN PLACE, SETTINGS UNCHANGED, SPO2 90%, WILL CONTINUE PLAN OF CARE.
--- NOTE | 2021-06-09 20:26 | NUR ---
SHIFT REPORT RECEIVED FROM ANTWAN ALEXANDER. ASSESSMENT COMPLETED. PT IS ALERT/ORIENTED, REPORTS 2/10 HIP PAIN, PRN TYLENOL GIVEN. LUNGS CLEAR, DIM IN BASES WITH FINE CRACKLES, CPAP 13 @ 50% IN PLACE. HR REGULAR. BOWEL TONES ACTIVE. SKIN GROSSLY INTACT, ALLEVYN TO BRIDGE OF NOSE. IV SITES INTACT AND PATENT. URINAL EMPTIED AND FRESH ICE WATER PROVIDED. PT DENIES FURTHER NEEDS AT THIS TIME, CALL LIGHT WITHIN REACH.
--- NOTE | 2021-06-09 22:00 | NUR ---
IN TO START CEFEPIME INFUSION. PT HAS REPOSITIONED HIMSELF ONTO RIGHT SIDE, DENIES NEEDS AT THIS TIME. CALL LIGHT WITHIN REACH.
--- NOTE | 2021-06-10 00:35 | NUR ---
ASSESSMENT COMPLETED AND UNCHANGED. PT REPOSITIONED HIMSELF ONTO LEFT SIDE. FIO2 INCREASED TO 75% AFTER PT TOOK OFF MASK FOR DRINKS OF WATER AND JUICE, THEN TITRATED TO 65%. URINAL EMPTIED. PT DENIES FURTHER NEEDS, CALL LIGHT WITHIN REACH.
--- NOTE | 2021-06-10 02:45 | NUR ---
CHECKED IN ON PT WHO ASKED THAT I TURN HIS OXYGEN DOWN, TITRATED FIO2 TO 55%. PT DENIES FURTHER REQUESTS AT THIS TIME.
--- NOTE | 2021-06-10 03:22 | NUR ---
FIO2 TITRATED TO 60% FOR SPO2 88%.
--- NOTE | 2021-06-10 05:30 | NUR ---
ASSESSMENT COMPLETED. FIO2 INCREASED TO 70% FOR SPO2 OF 88%. REMAINDER OF ASSESSMENT UNCHANGED. URINAL EMPTIED. CEFEPIME INFUSION STARTED, IV REMAINS INTACT AND PATENT. PT PROVIDED WITH HOT TEA PER REQUEST, DENIES FURTHER NEEDS AT THIS TIME, CALL LIGHT WITHIN REACH.
--- NOTE | 2021-06-10 08:20 | NUR ---
PATIENT AWAKE IN BED, VITALS CHARTED. FACE AND HANDS WASHED, TEETH BRUSHED. STRWBERRY ENSURE PROVIDED FOR BREAKFAST PER REQUEST. CALL LIGHT IN REACH, LAB IN ROOM WELL
--- NOTE | 2021-06-10 14:15 | NUR ---
PATIENT AWAKE IN BED, AT BEDSIDE. ANTWAN STAFFORD IN ROOM BEDBATH COMPLETE AND LINENS CHANGED, ASSISTED THIS DIGITAL RESEARCH ANALYST. CPAP IN PLACE AT 80%, VITALS CHARTED, PATIENT NOW PRONING. CALL LIGHT IN REACH
--- NOTE | 2021-06-10 16:12 | NUR ---
pt in full prone position.
--- NOTE | 2021-06-10 17:05 | NUR ---
PT FINISHED PRONING ON BELLY, NOW HIGH ON HIS SIDE. PT IS AWAKE AND COOPERATIVE.
--- NOTE | 2021-06-10 17:26 | NUR ---
NO CHANGES TO DISCHARGE PLAN AT THIS TIME.
--- NOTE | 2021-06-10 17:34 | NUR ---
PT FIO2 TITRATED UP TO 100% FOR RECOVERY, PT NOT ABLE TO BOZENA BEING OFF THE CPAP TO EAT DINNER, PT REPORTS AIR HUNGER. WHEN PT OFF CPAP HE USES 15L O2 ON NON-REBREATHER.
--- NOTE | 2021-06-10 19:14 | NUR ---
PT HAS HAD A MOSTLY UNEVENTFUL SHIFT. NOTED THAT PT IS NOT ABLE TO BOZENA BEING OFF THE CPAP TO EAT FOOD, HIS AIR HUNGER IS INTOLERABLE WITH THE NON-REBREATHER AT 15L. PT IS ABLE TO TAKE A FEW SIPS OF FLUIDS, WATER OR ENSURE. PT ABLE TO SWALLOW PO MEDS. PT'S SPOUSE FRANCIA IS AT THE BEDSIDE FOR MOST OF THE SHIFT, SHE IS HELPFUL WITH THE PT AND IS COOPERTIVE AND POLITE. PT VITALS REMAIN STABLE. PT ABLE TO PRONE FULLY ON HIS BELLY 2 TIMES THIS SHIFT.
--- NOTE | 2021-06-10 20:15 | NUR ---
PATIENT REPORTS FEELING PAIN IN HIS LUNGS WHEN INHALING ON THE CPAP. Fi02 TITRATED BY JAVI MONCADA. RT CALLED. DISCUSSED WITH . VERBAL ORDERS FOR PRN MORPHINE, SEE EMAR.
--- NOTE | 2021-06-10 23:30 | NUR ---
PATIENT CALLED SEVERAL TIMES FEELING UNCOMFORTABLE, NEEDING SIPS OF WATER, UNABLE TO SLEEP AND REQUESTING HIS Fi02 BE TURNED UP. ASSISTED PATIENT FOR SIPS OF WATER AND TO REPSOITION. TYLENOL AND MORPHINE PROVIDED. TIRATED Fi02 TO 90%. O2 SATS ARE GREATER THAN 88% WHEN ON THE CPAP. RR 25-28. ORAL TEMP WNL. ENCOURAGED PATIENT TO FOCUS ON HIS BREATHING OR DISTRACT HIMSELF BY LISTENING TO THE CPAP. PATIENT PROVIDED WARM BLANKET. CALL LIGHT IN REACH.
--- NOTE | 2021-06-11 00:30 | NUR ---
PATIENT TOOK CPAP OFF FOR A DRINK. REQUIRED ASSISTANCE FROM JAVI MONCADA TO PUT CPAP BACK IN PLACE. TOLERATING FiO2 90% WITH O2 SAT 88% AND RR 26.
--- NOTE | 2021-06-11 02:49 | NUR ---
ASSISTED PATIENT TO HAVE A DRINK. PATIENT REPORTS THAT HE WAS ACTUALLY ABLE TO SLEEP SOME AND IS FEELING LESS ANXIOUS. PATIENT CONTINUES TO HAVE LABORED BREATHING OFF THE CPAP AND T[place]NE[place] ON THE CPAP, RR 28-30. O2 SATS GREATER THAN 88% ON 90% Fi02.
--- NOTE | 2021-06-11 05:53 | NUR ---
PATIENT PROVIDED WITH FRESH WATER AND HOT TEA. PATIENT TOLERATING CPAP AT 90% Fi02, TITRATED TO 80% Fi02. URNAL EMPTIED. IV ABX STARTED PER ORDER. VS STABLE. PATIENT REPORTS FEELING MORE RESTED BUT COMPLAINS OF DRY MOUTH. CPAP WARMER IS TURNED OFF AND PATIENT DECLINES TO HAVE IT BACK ON. HOWEVER THERE IS STERIL WATER IN THE HUMIDIFICATION. CHAP STICK PROVIDED.
--- NOTE | 2021-06-11 06:59 | NUR ---
patient requesting O2 be increased. Reported good O2 sats to patient. patient feels as if he cannot breathe. PRN morphine provided. patient asking "am I doing better today, I don't feel better". Assured patient that labs and xray results will be shared when available.
--- NOTE | 2021-06-11 08:30 | NUR ---
PATIENTS DAUGHTER AMOS CALLED UNIT ASKING WHY PATIENT HAD BEEN GIVE MORPHINE OVER NIGHT "THIS IS NOT SOMETHING WE WANT." RN AND DR PHELPS NOTIFIED
--- NOTE | 2021-06-11 09:15 | NUR ---
PT CALLED AND STATED THAT HIS LUNGS ARE HURTING HIM AND THAT HE CANNOT BREATH WELL. O2 SATS WERE 87%-90%, RR25-35. FIO2 ON C-PAP WAS INCREASED TO 100% FOR NOW. WILL LET YONATHAN KNOW. O2 SATS NOW 91%.
--- NOTE | 2021-06-11 09:15 | NUR ---
THIS WALL COVERING INSTALLER AT BEDSIDE TO ASSIST WITH CPAP MASK PER PATIENT REQUEST. PATIENT STATED AT THIS TIME "WE NEED TO FIND A REMEDY, THIS IS KILLING ME" RN NOTIFIED.
--- NOTE | 2021-06-11 10:40 | NUR ---
AT BEDSIDE AT THIS TIME, PATIENT AWAKE IN BED. CPAP IN PLACE. CALL LIGHT IN REACH, NO OTHER NEEDS AT THIS TIME
--- NOTE | 2021-06-11 11:30 | NUR ---
In room with patient and his , Kang. Pt has been somewhat diaphoretic earlier, feels he did not have a good night. Offered for clean linen and gown patient would like to defer until after lunch. Will offer again after he has eaten. Food has been ordered. Patient and state that nights are very dificult and that he has increased anxiety and feels clausterphobic. We have made arrangements per patient request, for his to be able to stay in the hospital with him at night time to help alleviate hes feeling of stress and anxiety. Pt denies any needs at this time.
--- NOTE | 2021-06-11 12:05 | NUR ---
remains in room with patient, settings unchanged for CPaP, daughter Ca has also arrived and is now in the room with paitent. Proper PPE has been provided for both and daughter. No questions or needs expressed at this time.
--- NOTE | 2021-06-11 12:15 | NUR ---
[facility] CPaPP off face to eat. Was able to eat a few bites of fruit and drink some of his gatorade without NRB which was offered, but patient declined. 02 sats for brief time of eating remained at 90%.
--- NOTE | 2021-06-11 12:55 | NUR ---
PATIENT AWAKE IN BED, 4 FAMILY MEMBERS AT BEDSIDE. VITALS AND CHARTED. PATIENT REFUSED BED CHANGE AT THIS TIME, WILL ASK AGAIN LATER. CALL LIGHT IN REACH, NO OTHER NEEDS AT THIS TIME
--- NOTE | 2021-06-11 19:57 | NUR ---
PT HAS REMAINED FATIGUED ALL SHIFT. PT RECIEVED 2 DOSES 1 MG EACH OF IV MORPHINE FOR AIR HUNGER. PT REMAINS ALERT AND ORIENTED X4 AND COOPERATIVE. PT SPOUSE IS AT THE BEDSIDE MOST OF THE SHIFT, AND IS HELPFUL WITH TAKING CARE OF THE PT. FAMILY CARE MEETING - TODAY AT 1310 A FAMILY MEETING WAS HELD, ALL PT'S CHILDREN THERE, PT SPOUSE, AND [id number], AND A FAMILY SUPPORT PERSON NAMED CYNDIE, [facility] , NYDIA ROBLES, AND THIS RN. EXCELLENT PROGRESS MADE, ALL QUESTIONS ANSWERED, FAMILY AND CARE TEAM ARE ALL ON THE SAME PAGE. MOCK CATH PLACED AT 1800 PER PT REQUEST, IMMEDIATE URINE RETURN OBTAINED. PT STATES HE IS MORE COMFORTABLE NOW. PT STILL NOT ABLE TO TAKE MORE THAN A FEW SIPS OR BITES OF FOOD BEFORE HE NEEDS TO GO BACK ON THE CPAP. PT ONLY ABLE TO PRONE ON HIS BELLY FOR 15-20 MINUTES THIS SHIFT. FULL BEDBATH GIVEN, ALL LINENS CHANGED. PT IV SITE IS INTACT, NO REDNESS OR SWELLING NOTED, PT DENIES PAIN AT THE SITE. PT DENIES PAIN AND NAUSEA ALL SHIFT. PT DOES HAVE SIGNIFICANT SOB WHEN NOT ON CPAP.
--- NOTE | 2021-06-11 20:00 | NUR ---
PATIENT USED CALL LIGHT. DAUGHTER AND AT BEDSIDE. FAMILY DENIED NEEDS. PATIENT REQUESTING OXYGEN BE INCREASED AND REPORTS FEELING SOB. O2 SATS 92% ON 80% Fi02 VIA CPAP. PATIENT OFFERED MORPHINE AND FAMILY REFUSED. PATIENT'S FAMILY REPORTS THE PATIENT HAS BEEN ABLE TO SETTLED DOWN AFTER A FEW MINS WITH SOME REASSURANCE AND IT IS THEIR WISH TO "WEAN DOWN" THE MORPHINE. OFFERED CLARIFICATION ON USE OF MORPHINE FOR PRN SOB AND FAMILY DECLINED EDUCATION. PATIENT RESTING WITH EYES CLOSED AFTER THIS EXCHANGE. ALLOWED PATIENT TO REST AND ASSURED FAMILY THIS RN WOULD BE IN WITH EVENING MEDS SOON.
--- NOTE | 2021-06-11 20:45 | NUR ---
PATIENT PROVIDED WITH EVENING MEDS. PATIENT REPORTS FEELING DRY. SIPS OF WATER PROVIDED AND CHAP STICK. PRN COUGH MEDS PROVIDED PER REQUEST. PATIENT APPEARS TIRED AND RR 25-30. REQUEST OXYGEN BE INCREASED. AFTER CPAP OFF FOR 10-15 SECONDS FOR MEDS AND SIP OF WATER THEN PATIENT'S O2 SATS WERE 60%. INCREASED Fi02 TO 100% WHILE RN IN ROOM. MOCK EMPTIED. EDUCATION ON MOVING MOCK FOR REPOSITION GIVEN TO FAMILY. PATIENT IS SL, IV SITE WNL. LUNG SOUNDS ARE CLEAR IN UPPERS, DIMINISHED IN THE BASES. FAMILY REPORTS PATIENT COUGHING UP FOR THICK CLEAR SPUTUM. ENCOURAGED PATIENT TO TURN TO ONE SIDE, PATIENT ASSURED STAFF HE WOULD SOON BUT FOR NOW IS LAYING ON HIS BACK. FAMILY STAYING IN ROOM FOR THE NIGHT. Fi02 DECREASED TO 80% Fi02. ENOCURAGED PATIENT TO CALL FOR ANY CONCERNS.
--- NOTE | 2021-06-12 00:33 | NUR ---
PATIENT REQUEST FRESH WATER WHICH WAS PROVIDED. PATIENT TOLERATING CPAP AT 80% Fi02. RR 25. O2 SATS 90%. CARDIAC LEADS REPLACED. ASSISTED PATIENT TO TURN TO HIS RIGHT SIDE. DENIED DENIED ANY NEEDS. APPEARS TO BE RESTING. FAMILY AT BEDSIDE.
--- NOTE | 2021-06-12 03:00 | NUR ---
PATIENT PROVIDED WITH HOT TEA PER REQUEST. PATIENT HAS BEEN LAYING ON HIS BACK, O2 SATS 85-90% ON 80% Fi02. DESATS WHEN OFF FOR BRIEF PERIODS FOR DRINKING. ENCOURAGED PATIENT AND FAMILY TO CONTINUE FOLLOWING PRONING PROTOCOL TOLERATED.
--- NOTE | 2021-06-12 05:45 | NUR ---
PATIENT RESTING ON HIS BACK. RR 30'S. O2 SAT 85% ON 80% Fi02 VIA CPAP. ENCOURAGED PATIENT TO ROLL TO HIS SIDE. MOCK EMPTIED. VS WNL. AXILLARY TEMP 99.1F AND PATIENT REPORTS FEELING WARM. REQUEST PRN TYLENOL FOR "ACHING BONES", WHICH WAS PROVIDED. O2 SATS IMPORVED TO 90%, RR CONTINUED AT 30. FAMILY AT BEDSIDE.
--- NOTE | 2021-06-12 10:50 | NUR ---
Daughter in room with patient, pt remains on CPaP, pt given a drink of H20 and then "swish and swallow" administered. Pt able to swish for a good amount of time prior to swallowing, CPaP off for event. Pt sats down to 80%, CPaP re-applied, pt sats to 90 - 96% within 60-90 seconds. Plan of care discussed briefly with patient and his daughter, both acknowledge understanding of current plan of care.
--- NOTE | 2021-06-12 19:37 | NUR ---
PT HAS HAD A GOOD SHIFT. PT CONTINUES THE SAME YESTERDAY, NO BETTER AND NO WORSE. FAMILY IN THE ROOM AT THE BEDSIDE ALL DAY, VERY HELPFUL WITH PT NEEDS. PT MOCK IS INTACT, MOCK CATH CARES DONE. PT IV SITE IS ALSO INTACT, PT DENIES PAIN WITH FLUSH, NO REDNESS OR SWELLING NOTED, FLUSH INFUSE EASILY. PT IS ABLE TO BOZENA MOSTLY ONLY SIPS OF FLUIDS, SOME BITES OF SOFT FOOD. PT REMAINS ALERT AND ORIENTE X4, COOPERATIVE AND POLITE. IV FLUIDS STARTED AT THE END OF THE SHIFT, LR AT 75. PT HAS REQUESTED MORIPHINE 1 MG AT A TIME TWICE THIS SHIFT, AND REPORTS A GOOD BENNIFIT FROM THIS. ORAL CARE KIT IN ROOM, ORAL CARES DONE TWICE. NYSTOP STARTED TODAY FOR VISABLE THRUSH IN MOUTH. FULL BEDBATH DONE, LINNEN CHANGE DONE. PT NOT ABLE TO BOZENA ANY OTHER O2 SOURCE THAN CPAP, DESATS QUICKLY TO THE 60'S.
--- NOTE | 2021-06-12 19:41 | NUR ---
RECEVIED REPORT FROM DAYSHIFT. pt RESTING IN BED WITH CPAP ON. O2 SAT 90%. FAMILY AT BEDSIDE. CALL LIGHT WITHIN REACH. DENIES NEEDS AT THIS TIME.
--- NOTE | 2021-06-12 20:47 | NUR ---
IN TO DO ASSESSMENT. FAMILY AT BEDSIDE. FAMILY ANSWERED QUESTIONS FOR pt AT TIMES. FAMILY REFUSED MORPHINE. pt REQUESTED, EDUCATION DONE ON WHY MORPHINE IS ORDERED, PRN GIVEN WITH SCHEDULED MEDICATIONS. pt REQUESTED O2 BE INCREASED ON CPAP PRIOR TO TAKING OFF MASK FOR ORAL CARE AND MEDS. DONE CPAP 12 FiO2 OF 100%. pt ABLE TO TAKE A SIP OF WATER AND PILL. BACK ON MASK TO RECOVER. THEN ORAL CARE WAS DONE. pt THEN NEEDED SEVERAL MINUTES OF RECOVERY PRIOR TO LAST MEDICATION. LUNGS DIM, FINE CRACKLES IN THE BASES. PITTING EDEMA IN BLE 1+. MOCK CARE DONE. pt STATES HE IS UNABLE TO BREATH WHEN HE IS ON HIS SIDE. DISCUSSED TRYING AGAIN WHEN HE CAN HAVE MORPHINE. pt AGREEABLE, FAMILY RESISTANT. FAMILY REMAINS AT BEDSIDE. CALL LIGHT WITHIN REACH.
--- NOTE | 2021-06-12 21:13 | NUR ---
pt SATS LOW 90'S DECREASED CPAP FiO2 TO 80%. FAMILY AT BEDSIDE. CALL LIGHT WITHIN REACH.
--- NOTE | 2021-06-12 21:32 | NUR ---
pt TURNED TO RIGHT SIDE. REQUESTED "MORE OXYGEN" FiO2 INCREASED TO 100% PER REQUEST
--- NOTE | 2021-06-12 21:40 | NUR ---
CALL LIGHT ON. pt REQUESTED OXYGEN BE "TURNED DOWN" Fi02 TO 80%. HR 105. pt REMAINS ON RIGHT SIDE.
--- NOTE | 2021-06-12 22:03 | NUR ---
pt CONTINUES TO BE RESTLESS, REQUESTED MORE MORPHINE. FAMILY MEMBER IMMEDIATELY REFUSED STATING "HE'S JUST ANXIOUS, HE JUST NEEDS TO BREATH" EDUCATION DONE. FAMILY IS CONCERNED ABOUT ADDICTION, EDUCATION DONE. FAMILY AGREEABLE TO ANXIETY MEDICATION DR MC UPDATED ON pt STATUS, NEW ORDERS ENTERED.
--- NOTE | 2021-06-12 22:47 | NUR ---
IN TO GIVE ATIVAN. EDUCATION DONE. pt VERY AGREEABLE TO TAKING MEDICATION. LENGTHY DISCUSSION WITH pt AND FRANCIA ABOUT MEDICATIONS, TREATMENT, AND CURRENT ILLNESS. WHEN DISCUSSING MORPHINE THIS RN TOLD FRANCIA THAT MORPHINE WOULD BE GIVEN WHEN THE PATIENT REQUESTED IT EVEN IF SHE THOUGHT HE DID NOT NEED IT, THE pt GAVE A THUMBS UP AND NODDED IN AGREEMENT. FRANCIA CONTINUES TO BE HESITANT ABOUT ANY MEDICATIONS. AFTER DISCUSSION pt REPORTED HE WAS DOING OKAY AND DECLINED MORPHINE AT THIS TIME. REMAINS AT BEDSIDE. CALL LIGHT WITHIN REACH. pt RESTING ON BACK, CPAP 13 FiO2 OF 90%, O2 SAT 91%. RESPIRATIONS 25.
--- NOTE | 2021-06-13 00:18 | NUR ---
ROUNDED ON pt. RESTING WITH EYES CLOSED, FLAT ON BACK. CPAP IN PLACE 13/90% FiO2. RESPIRATIONS LESS LABORED RATE MID 20'S. REMAINS AT BEDSIDE, GAVE THUMBS UP. CALL LIGHT WITHIN REACH.
--- NOTE | 2021-06-13 00:40 | NUR ---
CALL LIGHT ON. pt REQUESTED O2 BE DECREASED CPAP SETTINGS CHANGED TO 11/90% FiO2. NO OTHER REQUESTS AT THIS TIME. CALL LIGHT WITHIN REACH. AT BEDSIDE.
--- NOTE | 2021-06-13 01:32 | NUR ---
pt CONTINUES TO REST ON CPAP SAT 86%, RR 28. HR 77. EYES CLOSED, RESPIRATIONS REGULAR, NO INCREASE IN WOB NOTED. AT BEDSIDE.
--- NOTE | 2021-06-13 01:46 | NUR ---
CPAP ALARMING, IN TO ASSESS. pt DENIES NEED FOR ANY MEDICATIONS STATES "I'M DOING ALRIGHT BREATHING" O2 SAT 77% WITH MOVEMENT AND REMOVAL OF MASK. CPAP 11/100%. SATS NOW MID 80'S. AT BEDSIDE.
--- NOTE | 2021-06-13 03:10 | NUR ---
UPDATED BY PRAVEEN MONCADA ABOUT pt BECOMING RESTLESS. IN TO ASSESS. LUNGS CLEAR AND DIM. RESPIRATION RATE 35-40. RT IN ROOM AT BEDSIDE.
--- NOTE | 2021-06-13 03:20 | NUR ---
CALLED DR MC AND UPDATED ON INCREASED RESPIRATIONS (35-40), INCREASED CPAP PRESSURE 15/100%, AND pt AGITATION. ORDERS FOR VBG AND 1MG ATIVAN TO BE GIVEN NOW. LUNGS CLEAR AND DIM IN THE BASES.
--- NOTE | 2021-06-13 04:09 | NUR ---
IN TO DRAW LAB. PRECEDEX GTT TITRATED TO 0.4MCG/KG/HR. LAB DRAWN. NEW IV STARTED IN LEFT HAND. IV ATIVAN GIVEN. pt TOLERATING CPAP BETTER. REMAINS AT BEDSIDE. pt CONTINUES TO BREATH IN THE MID TO HIGH 30'S. O2 SAT 88 TO 90%. CPAP 15/100%.
--- NOTE | 2021-06-13 05:22 | NUR ---
IN TO DRAW MORNING LABS. pt RESTING COMPLIANT WITH CPAP. O2 SAT 93%, RESPIRATIONS HIGH 20S TO 30. HR 80'S. AND DAUGHTERS AT BEDSIDE. ALL QUESTIONS ANSWERED. CALL LIGHT WITHIN REACH.
--- NOTE | 2021-06-13 06:01 | NUR ---
ROUNDED ON pt. RESTING IN BED ON RIGHT SIDE. COMPLIANT WITH CPAP AT THIS TIME. PRESSURE 14/FiO2 100%. RESPIRATIONS REMAIN MID 30S. FAMILY AT BEDSIDE.
--- NOTE | 2021-06-13 06:55 | NUR ---
pt PULLING AT MASK AND LINES. REPORTS BEING WARM. PULLED BLANKETS OFF AND COOLED pt. pt PULLS MASK OFF AND STATES "I CAN'T BREATH" MORPHINE GIVEN (SEE MAR). SON AND DAUGHTER HOLDING ARMS TO ASSIST WITH RESTRAINT. PRECEDEX TITRATED TO 0.6. pt IS STARTING TO RELAX AND BE MORE COMPLIANT WITH CPAP. SETTINGS UNCHANGED 14/100%. FAMILY REMAINS AT BEDSIDE. DR MC AT BEDSIDE.
--- NOTE | 2021-06-13 08:03 | NUR ---
TWO RINGS REMOVED FOR PT'S HANDS AND GIVEN TO ANTWAN ROBLES, SHE GAVE THEM TO FAMILY.
--- NOTE | 2021-06-13 09:30 | NUR ---
0750 - PLAN IN PLACE TO ENTUBATE AND SHIP PT TO HIGHER LEVEL OF CARE, ALL INTUBATION NOTE PLAN MADE FIRST THING THIS AM TO ENTUBATE AND SHIP PT TO HIGHER LEVEL OF CARE, PT AND FAMILY ARE ON BOARD AND AGREABLE TO THIS PLAN. 0755 - PRESIDEX DRIP TURNED UP TO 1.0 DUE TO AGGITAION, PT TRYING TO PULL OF CPAP. 0800 - RN YONATHAN AND DEJAH, AND RT SAVANNAH IN THE ROOM TO PREP FOR INTUBATION 0815 - MONICA DINH IN THE ROOM PREPING FOR ENTUBATION 0816 - 5 MG PROPOFOL, 10 MG ATOMIDATE, 100 MG ROCUROONIUM GIVEN FOR SEDATION AND PRAYLIZATION. 0818 - 6.5 TUBE PLACED 21.0 AT THE TEETH. SUCESSFUL ENTUBATION. 0820 - SECUREMENT PLACED BY SAVANNAH FROM RT 0821 - OG TUBE PLACED BY ALLEGRA ANDERSON 0821 - [facility] ARIVED TO THE UNIT TO TRANSPORT PT. 0826 - CHEST XRAY DONE TO VERIFY PLACEMENT 0828 - PRESIDEX TURNED DOWN TO 0.6 DUE TO RASS OF -3 0831 - [facility] IN THE ROOM TO PREP FOR TRANSFER 0840 - PT MOVED TO THE [facility]ANG 0849 - PT LEAVES THE UNIT WITH [facility].
== END 2021-06-13 09:15 | disposition short-term general hospital (02) | DRG 208 ==
LOC: ED 20:13 → CCU 22:42
PROVIDERS: ADMIT Student in an Organized Health Care Education/Training Program; ATTEND Student in an Organized Health Care Education/Training Program
PROC: 5A09557 Assistance with Respiratory Ventilation, Greater than 96 Consecutive Hours, Continuous Positive Airway Pressure (ICD-10-PCS; principal; 2021-05-31)
PROC: 5A1935Z Respiratory Ventilation, Less than 24 Consecutive Hours (ICD-10-PCS; 2021-05-31)
PROC: XW033E5 Introduction of Remdesivir Anti-infective into Peripheral Vein, Percutaneous Approach, New Technology Group 5 (ICD-10-PCS; 2021-05-31)
PROC: 0BH17EZ Insertion of Endotracheal Airway into Trachea, Via Natural or Artificial Opening (ICD-10-PCS; 2021-06-13)
DX: U07.1 COVID-19 (principal); J96.01 Acute respiratory failure with hypoxia; J12.82 Pneumonia due to coronavirus disease 2019; B37.0 Candidal stomatitis; N17.9 Acute kidney failure, unspecified; Z66 Do not resuscitate; K75.2 Nonspecific reactive hepatitis; T38.0X5A Adverse effect of glucocorticoids and synthetic analogues, initial encounter; Z98.890 Other specified postprocedural states; J98.2 Interstitial emphysema
CPT/HCPCS: 31500; 36600; 71045; 71260; 80048; 80053; 80202; 82803; 83605; 83735; 83880; 84484; 85007; 85025; 85379; 87040; 87070; 87205; 93005; 93010; 94002; 94660; 94799; 99285-25; A9270; C9803; J0692; J1100; J1650; J1956; J2060; J2270; J2704; J3370; J7050; J7060; J7121; Q0177; U0003